=== PATIENT | female | born 1955 | race Caucasian/White ===

== ENCOUNTER 2017-04-27 09:12 | Inpatient (IN) ==
[2017-04-27] MEDS ORDERED: 0.9 % Sodium Chloride 1,000 ML IVC ONE (09:35)
[2017-04-27] MEDS ORDERED: Vancomycin 1,250 MG in D5% in Water 250 ML IVPB STA (09:40)
--- NOTE | 2017-04-27 09:42 | Emergency Department Note ---
Disposition Clinical Impression: Cellulitis Qualifiers: Site of cellulitis: extremity Site of cellulitis of extremity: lower extremity Laterality: left Qualified Code(s): L03.116 - Cellulitis of left lower limb Disposition: Admitted As Inpatient Condition: Fair Time of Disposition: 11:06 Extremity Problem HPI - General Chief complaint: ED Extremity Problem,Nontraumatic Stated complaint: LLE Cellulitis Time Seen by Provider: 04/27/17 09:22 Source: patient Mode of arrival: ambulatory Limitations: no limitations Nursing Notes Reviewed: Yes Vital Signs Reviewed: Yes - History of Present Illness HPI Narrative: Patient is instructed him up once emergency department with left leg pain and cellulitis. Patient states that this is been ongoing for about the past 3 weeks. She says she has been on antibiotics for the past 20 days including clindamycin and for the past 10 days Bactrim. She states that she has had an ultrasound of her leg was negative for DVT. She reports that she was here this past Monday and received treatment but did not want to be admitted because she felt that she needed to work. She states that she does not know if there is any injury to the leg but states that while putting on her compression stockings she felt that she may have scraped her leg. Her leg seems to get worse when she is on it all day and is better while she has elevated during the night. She says that her leg feels like a burning pain and rates as a 7 out of 10. Pain Scale: 7 - Related Data Home Medications Medication Instructions Recorded Confirmed Dapagliflozin Propanediol [Farxiga] 5 mg PO DAILY 04/27/17 04/27/17 Duloxetine HCl [Cymbalta] 60 mg PO DAILY 04/27/17 04/27/17 Furosemide [Lasix] 40 mg PO DAILY 04/27/17 04/27/17 Liraglutide [Victoza 3-Polo] 1.2 mg SQ DAILY 04/27/17 04/27/17 Methocarbamol [Robaxin-750] 750 mg PO Q12H PRN 04/27/17 04/27/17 Multivitamin [Multi-Day Vitamins] 1 tab PO DAILY 04/27/17 04/27/17 Naproxen [Naprosyn] 500 mg PO BID PRN 04/27/17 04/27/17 Olmesartan/Hydrochlorothiazide 1 tab PO DAILY 04/27/17 04/27/17 [Benicar Hct 20-12.5 mg Tablet] Potassium Chloride [Klor-Con 10] 10 meq PO DAILY 04/27/17 04/27/17 Pregabalin [Lyrica] 150 mg PO HS 04/27/17 04/27/17 Rosuvastatin [Crestor] 20 mg PO HS 04/27/17 04/27/17 Allergies Allergy/AdvReac Type Severity Reaction Status Date / Time cephalexin [From Keflex] Allergy Rash Verified 04/25/17 20:36 clopidogrel [From Plavix] Allergy Anaphylaxis Verified 04/25/17 20:36 Penicillins [PCN] Allergy Rash Verified 04/25/17 20:36 All systems ED: reviewed and negative except as stated. ENT ED: Reports: other (Sore throat couple of days ago) Musculoskeletal: Reports: other (Left leg pain) Past Medical History - Past Medical History Attestation: Yes The following information was validated with the patient. Source: patient Medical history: Reports: diabetes, hyperlipidemia, hypertension Psychiatric history: Reports: no psych history DIRECTOR OF CLINICAL TRIALS history: Reports: no DIRECTOR OF CLINICAL TRIALS history - Social History Smoking Status: Never smoker Smokeless Tobacco Status: No Alcohol use: Reports: rarely Drug use: Reports: none Physical Exam - General Limitations: no limitations General appearance: alert, in no apparent distress - Head Head exam: atraumatic, normocephalic - Neck Neck exam: Present: normal inspection, full ROM, trachea midline - Respiratory Respiratory exam: Present: normal lung sounds bilaterally. Absent: respiratory distress, wheezes - Cardiovascular Cardiovascular exam: Present: regular rate, normal rhythm, normal heart sounds, +S1, +S2 - Abdominal Exam Abdominal exam: Present: soft, Non-Tender, normal bowel sounds - Expanded Lower Extremity Exam Lower leg exam: Present: swelling, erythema, other (Petechiae) - Neurological Exam Neurological exam: Present: alert, oriented X3, CN II-XII intact - Psychiatric Psychiatric exam: Present: normal affect, normal mood - Skin Skin exam: Present: warm, dry, intact, erythema - Expanded Skin Exam Distribution: LLE Description: Present: tenderness, erythematous, swelling, petechial Course Vital Signs Temperature 98.2 F 04/27/17 09:19 Pulse Rate 84 04/27/17 09:19 Respiratory Rate 18 04/27/17 09:19 Blood Pressure 123/74 04/27/17 09:19 O2 Sat by Pulse Oximetry 95 04/27/17 09:19 Temperature 98.2 F 04/27/17 09:19 Pulse Rate 83 04/27/17 09:30 Respiratory Rate 20 04/27/17 11:19 Blood Pressure 129/71 04/27/17 11:19 O2 Sat by Pulse Oximetry 96 04/27/17 09:30 Oxygen Delivery Oxygen Delivery Room Air Extremity Problem, Nontraumati - [facility] Narrative Medical decision making narrative: Patient is a 61-year-old female that presents emergency Department with left lower extremity pain and possible cellulitis. She has received outpatient therapy with clindamycin and Bactrim. Since she has failed outpatient therapy 2 we will start her on vancomycin and admitted her to the hospital. We have ordered labs and will contact the hospitalist once we have the results. I spoke with Dr. Mason at 10:45am and he has accepted the patient to his service. - Medical Records Medical records reviewed: Yes I reviewed the patient's medical records. - Lab Data Lab results reviewed: Yes I reviewed the patient's lab results. Result diagrams: 04/27/17 09:46 04/27/17 09:46 Lab Results 04/27/17 04/27/17 Range/Units 09:46 09:46 WBC 6.0 (4.3-11.1) K/mcL RBC 4.20 (3.82-4.97) M/mcL Hgb 11.2 L (11.5-15.4) g/dL Hct 36.2 (35.3-44.9) % MCV 86.2 (83.0-100.0) fL MCH 26.7 L (28.0-33.3) pg MCHC 30.9 L (31.6-35.5) g/dL RDW 15.1 H (11.5-14.5) % Plt Count 281 (140-400) K/mcL MPV 11.2 (9.4-12.4) fL Immature Gran % 0.5 (0-4) % Seg Neutrophils % 73.6 % Lymphocytes % 18.9 % Monocytes % 4.2 % Eosinophils % 2.5 % Basophils % 0.3 % Neutrophils # 4.4 (1.6-8.9) K/mcL Lymphocytes # 1.1 (0.6-4.6) K/mcL Monocytes # 0.3 (0.0-1.3) K/mcL Eosinophils # 0.2 (0.0-0.6) K/mcL Basophils # 0.0 (0.0-0.2) K/mcL Sodium 138 (136-145) mEq/L Potassium 3.9 (3.5-4.5) mEq/L Chloride 103 (98-109) mEq/L Carbon Dioxide 26 (19-29) mEq/L BUN 18 (7-20) mg/dL Creatinine 1.17 H (0.57-1.11) mg/dL Est GFR ( Amer) 57 L (> 60) Est GFR (Non-Af Amer) 47 L (> 60) BUN/Creatinine Ratio 15 (6-26) Glucose 251 H (70-99) mg/dL Calculated Osmolality 296 (280-300) Calcium 10.5 (8.6-10.8) mg/dL Attestation Statement - Attestation Attestation: I examined this patient and my medical decision-making was reviewed with the Resident Physician. I agree with the documented findings, disposition and treatment plan as described except to the extent set forth below. 61-year-old female presents ED because of painful swelling of her left leg. She has had redness and swelling of her left partially for the past few weeks. Uncertain if there was any trauma. She was treated with a ten-day course of clindamycin without improvement. She is now been on almost 10 days of Bactrim without improvement. No long-distance travel or periods of prolonged immobilization. She was seen in the ED 2 days ago and underwent venous duplex study which was negative for DVT. She returns today because symptoms are worsening and the erythema has progressed to the posterior aspect of the leg. Denies fevers, chills or rigors. Well-appearing female in no apparent distress. Left lower extremity with moderate erythema is nearly circumferential around the lower leg. Dorsal pedal pulses are brisk. Capillary refill is brisk. Compartment is soft. Moderate tenderness and now with some ecchymosis over the anterior rossi. No palpable fluctuance. Labs unremarkable but slight increase in her creatinine. Bedside ultrasound of the region shows some mild cobblestoning of the soft tissue but no focal fluid acute lesion. She will be started on IV vancomycin and admitted for further treatment
[2017-04-27 10:08] LABS: Basophils % 0.3 %; Eosinophils # 0.2 K/mcL (0.0-0.6); Eosinophils % 2.5 %; Hematocrit 36.2 % (35.3-44.9); Hemoglobin 11.2 g/dL (11.5-15.4); Immature Granulocytes % 0.5 % (0-4); Lymphocytes # 1.1 K/mcL (0.6-4.6); Lymphocytes % 18.9 %; Mean Corpuscular HGB Conc 30.9 g/dL (31.6-35.5); Mean Corpuscular Hemoglobin 26.7 pg (28.0-33.3); Mean Corpuscular Volume 86.2 fL (83.0-100.0); Mean Platelet Volume 11.2 fL (9.4-12.4); Monocytes # 0.3 K/mcL (0.0-1.3); Monocytes % 4.2 %; Neutrophils # 4.4 K/mcL (1.6-8.9); Platelet Count 281 K/mcL (140-400); Red Cell Distribution Width 15.1 % (11.5-14.5); Segmented Neutrophils % 73.6 %
[2017-04-27 10:19] LABS: Calcium 10.5 mg/dL (8.6-10.8); Potassium 3.9 mEq/L (3.5-4.5)
[2017-04-27] MEDS ORDERED: Naloxone 0.4 MG/ML INJ IVP PRN (11:18)
[2017-04-27] MEDS ORDERED: Methocarbamol 750 MG TABLET PO PRN (11:23)
[2017-04-27] MEDS ORDERED: Dextrose Gel 15 GM PO PRN ×2 (11:26)
[2017-04-27] MEDS ORDERED: D5% in Water 1,000 ML IVC PRN (11:26)
[2017-04-27] MEDS ORDERED: *HR* Dextrose 50 % in Water (Syg) 50 ML SYRINGE IVP PRN (11:26)
--- NOTE | 2017-04-27 11:34 | Internal Med History&Physical ---
Date of Encounter: 04/27/17 Time of Encounter: 11:00 Assessment and Plan (1) Diabetes Current visit: Yes Status: Acute Will cover patient with sliding scale insulin Qualifiers: Diabetes mellitus type: type 2 Diabetes mellitus complication status: without complication Diabetes mellitus intermediate accountant insulin use: without intermediate accountant use Qualified Code(s): E11.9 - Type 2 diabetes mellitus without complications (2) Hypertension Current visit: Yes Status: Acute Continue home medications. Follow-up blood pressure Qualifiers: Hypertension type: essential hypertension Qualified Code(s): I10 - Essential (primary) hypertension (3) DVT prophylaxis Current visit: Yes Status: Acute Heparin subcutaneously. (4) Cellulitis Current visit: No Status: Acute Patient has failed outpatient treatment. We will start vancomycin IV, dosing by pharmacy. First dose has been given by emergency room. - Elevate left leg Patient is at high risk because she is on vancomycin, need close monitoring. Qualifiers: Site of cellulitis: extremity Site of cellulitis of extremity: lower extremity Laterality: left Qualified Code(s): L03.116 - Cellulitis of left lower limb (5) Elevated serum creatinine Current visit: Yes Status: Acute Borderline high creatinine. No previous result to compare. Avoid nephrotoxic medications. Follow-up renal function. Internal Medicine - H&P: HPI Chief complaint: Left leg pain and swelling Admitted From: Home Plans for Post Hospital Care: Home History of present illness: Ms. De Leon is a 61 year old female present to ER for left leg pain, swelling, skin redness and warmth for 20 days. Patient was treated as cellulitis as outpatient with clindamycin by mouth for 10 days and Bactrim by mouth for 10 days. Symptoms does not improve after outpatient treatment. The redness and swelling is getting worse. Patient also complaining burning and sharp pain. Denies fever, nausea. Denies skin rupture or discharge. Patient had leg venous ultrasound on 04/25, which shows negative for DVT. Patient was admitted because of failed outpatient treatment of cellulitis. Patient complaint sore throat and the right neck lymph node enlargement since yesterday. Past Med Surg Social Fam HX - Past Medical History Medical history: diabetes, hyperlipidemia, hypertension Psychiatric history: no psych history - Social History Smoking Status: Never smoker Smokeless Tobacco Status: No Alcohol use: rarely Drug use: none Internal Medicine - H&P: Meds Dapagliflozin Propanediol [Farxiga] 5 mg PO DAILY 04/27/17 [History] Duloxetine HCl [Cymbalta] 60 mg PO DAILY 04/27/17 [History] Furosemide [Lasix] 40 mg PO DAILY 04/27/17 [History] Liraglutide [Victoza 3-Polo] 1.2 mg SQ DAILY 04/27/17 [History] Methocarbamol [Robaxin-750] 750 mg PO Q12H PRN 04/27/17 [History] Multivitamin [Multi-Day Vitamins] 1 tab PO DAILY 04/27/17 [History] Naproxen [Naprosyn] 500 mg PO BID PRN 04/27/17 [History] Olmesartan/Hydrochlorothiazide [Benicar Hct 20-12.5 mg Tablet] 1 tab PO DAILY [History] Potassium Chloride [Klor-Con 10] 10 meq PO DAILY 04/27/17 [History] Pregabalin [Lyrica] 150 mg PO HS 04/27/17 [History] Rosuvastatin [Crestor] 20 mg PO HS 04/27/17 [History] Allergies cephalexin [From Keflex] Allergy (Verified 04/25/17 20:36) Rash clopidogrel [From Plavix] Allergy (Verified 04/25/17 20:36) Anaphylaxis Penicillins [PCN] Allergy (Verified 04/25/17 20:36) Rash All Systems PM: A 10-system review of systems was performed and is negative for pertinent findings except as documented above in the HPI. - Constitutional Vitals: Temp Pulse Resp BP Pulse Ox 98.2 F 83 20 129/71 96 04/27/17 09:19 04/27/17 09:30 04/27/17 11:19 04/27/17 11:19 04/27/17 09:30 - Head Head exam: Present: atraumatic, normocephalic - Eye Eye exam: Present: PERRL, conjuntiva pink, sclera anicteric Pupils: Present: PERRL - Neck Neck exam general surgery: Present: supple, trachea midline. Absent: lymphadenopathy - Respiratory Respiratory exam: Present: CTAB. Absent: accessory muscle use, rales, rhonchi, wheezes - Cardiovascular Cardiovascular exam: Present: RRR, +S1, +S2. Absent: diastolic murmur, gallop, rubs, systolic murmur - GI/Abdominal GI/Abdominal exam: Present: normal bowel sounds, soft, no peritoneal signs. Absent: distended, tenderness - Extremities Exam Extremities exam: Present: warm, radial pulses palpable and symetrical. Absent : calf tenderness, cyanotic, pedal edema Additional comments: Left lower leg shows swelling, skin redness/warmth/tenderness - Neurological Exam Neurological exam: Present: CN II-XII intact, oriented X3, no focal deficits. Absent: pronater drift, facial droop, speech deficit - Skin Skin exam: Present: dry, intact Internal Med - H&P Results - Labs CBC & Chem 7: 04/27/17 09:46 04/27/17 09:46
[2017-04-27] MEDS ORDERED: Vancomycin 1,250 MG in D5% in Water 250 ML IVPB SCH (12:00)
[2017-04-27] MEDS: Insulin LISPRO 300 UNITS/3 ML VIAL SQ SCH ×4 (12:52→20:38)
[2017-04-27] MEDS: *HR* HYDROcodone/Acet 5/325 mg TABLET PO PRN ×2 (13:21→19:54)
[2017-04-27] MEDS: Acetaminophen 325 MG TABLET PO PRN (15:45)
[2017-04-27] MEDS: *HR* Heparin 5,000 UNIT/ML VIAL SQ SCH (17:55)
[2017-04-27] MEDS: Pregabalin 75 MG CAPSULE PO SCH (21:00)
[2017-04-27] MEDS: Lactobacillus 1 EACH CAP.SPRINK PO SCH (21:00)
[2017-04-28] MEDS: *HR* HYDROcodone/Acet 5/325 mg TABLET PO PRN ×2 (03:52→14:45)
[2017-04-28] MEDS: *HR* Heparin 5,000 UNIT/ML VIAL SQ SCH ×2 (05:55→16:51)
[2017-04-28 06:14] LABS: Basophils % 0.4 %; Eosinophils # 0.2 K/mcL (0.0-0.6); Eosinophils % 3.4 %; Hematocrit 33.3 % (35.3-44.9); Hemoglobin 10.3 g/dL (11.5-15.4); Immature Granulocytes % 0.5 % (0-4); Lymphocytes # 1.4 K/mcL (0.6-4.6); Lymphocytes % 25.7 %; Mean Corpuscular HGB Conc 30.9 g/dL (31.6-35.5); Mean Corpuscular Hemoglobin 26.8 pg (28.0-33.3); Mean Corpuscular Volume 86.5 fL (83.0-100.0); Mean Platelet Volume 11.6 fL (9.4-12.4); Monocytes # 0.3 K/mcL (0.0-1.3); Monocytes % 6.1 %; Neutrophils # 3.6 K/mcL (1.6-8.9); Platelet Count 257 K/mcL (140-400); Red Blood Count 3.85 M/mcL (3.82-4.97); Segmented Neutrophils % 63.9 %
[2017-04-28 06:16] LABS: BUN/Creatinine Ratio 16 (6-26); Blood Urea Nitrogen 17 mg/dL (7-20); Calcium 10.1 mg/dL (8.6-10.8); Carbon Dioxide 27 mEq/L (19-29); Chloride 104 mEq/L (98-109); Glucose 122 mg/dL (70-99); Osmolality,Calculated 289 (280-300); Sodium 138 mEq/L (136-145); eGFR For African Americans > 60 (> 60); eGFR For Non-African Americans 53 (> 60)
[2017-04-28] MEDS: Insulin LISPRO 300 UNITS/3 ML VIAL SQ SCH ×4 (08:13→20:33)
[2017-04-28] MEDS ORDERED: Valsartan 160 MG TABLET PO SCH (09:00)
[2017-04-28] MEDS: Lactobacillus 1 EACH CAP.SPRINK PO SCH ×2 (09:15→20:33)
[2017-04-28] MEDS: Furosemide 40 MG TABLET PO SCH (09:16)
[2017-04-28] MEDS: Multivit/Ca/Min/Fe/FA 1 TAB TABLET PO SCH (09:16)
[2017-04-28] MEDS: hydroCHLOROthiazide 25 MG TABLET PO SCH (09:16)
[2017-04-28] MEDS: Valsartan 160 MG TABLET PO SCH (09:30)
[2017-04-28] MEDS: Acetaminophen 325 MG TABLET PO PRN ×2 (10:48→20:32)
[2017-04-28] MEDS: Vancomycin 1,250 MG in D5% in Water 250 ML IVPB SCH (10:48)
--- NOTE | 2017-04-28 14:32 | Internal Med Progress Note ---
Date of Encounter: 04/28/17 Time of Encounter: 08:20 - Assessment and plan (1) Cellulitis Current Visit: Yes Status: Acute Assessment and plan: Cellulitis of the left lower extremity that has failed treatment with outpatient antibiotics. Improving now. Continue IV vancomycin. If symptoms continue to improve, patient may be discharged tomorrow on oral doxycycline as she has completed treatment course with clindamycin and Bactrim as outpatient. She needs to keep her left lower extremity elevated as much as possible to allow for resolution of cellulitis. Moderate risk for complications for worsening cellulitis and sepsis. Qualifiers: Site of cellulitis: extremity Site of cellulitis of extremity: lower extremity Laterality: left Qualified Code(s): L03.116 - Cellulitis of left lower limb (2) Diabetes Current Visit: Yes Status: Chronic Assessment and plan: improved control. Continue to monitor blood sugars and adjust insulin accordingly. Qualifiers: Diabetes mellitus type: type 2 Diabetes mellitus complication status: without complication Diabetes mellitus predatory animal exterminator insulin use: without [facility] use Qualified Code(s): E11.9 - Type 2 diabetes mellitus without complications (3) Elevated serum creatinine Current Visit: Yes Status: Chronic Assessment and plan: Patient may have underlying chronic kidney disease stage II. Creatinine today is better. We will avoid nephrotoxic agents and dose antibiotics renally. (4) Hypertension Current Visit: Yes Status: Chronic Assessment and plan: Blood pressure is well controlled Qualifiers: Hypertension type: essential hypertension Qualified Code(s): I10 - Essential (primary) hypertension - Subjective Interval history: Patient is awake and alert. Feels better today. Redness and swelling in left lower extremity is improving. She does have pain when she her left rossi but otherwise no significant pain. No discharge from left lower extremity. No fever chills or night sweats. - Constitutional Vitals: Temp Pulse Resp BP Pulse Ox 98.7 F 72 18 117/61 94 04/28/17 11:15 04/28/17 11:15 04/28/17 11:15 04/28/17 11:15 04/28/17 11:15 General appearance: Present: cooperative, A&O X 3, answers questions appropriately - Respiratory Respiratory exam: Present: CTAB. Absent: accessory muscle use, rales, rhonchi, wheezes - Cardiovascular Cardiovascular exam: Present: RRR, +S1, +S2. Absent: diastolic murmur, gallop, rubs, systolic murmur - GI/Abdominal GI/Abdominal exam: Present: normal bowel sounds, soft, no peritoneal signs. Absent: distended, tenderness - Extremities Exam Extremities exam: Present: warm, radial pulses palpable and symetrical. Absent : calf tenderness, cyanotic, pedal edema Additional comments: Erythema and swelling in the left lower extremity is improving. - Neurological Exam Neurological exam: Present: CN II-XII intact, oriented X3, no focal deficits. Absent: facial droop, speech deficit - Skin Skin exam: Present: dry, intact Internal Medicine: Result - Labs CBC & Chem 7: 04/28/17 04:34 04/28/17 04:34 Labs: Short CBC 04/28/17 Range/Units 04:34 WBC 5.6 (4.3-11.1) K/mcL Hgb 10.3 L (11.5-15.4) g/dL Hct 33.3 L (35.3-44.9) % Plt Count 257 (140-400) K/mcL Neutrophils # 3.6 (1.6-8.9) K/mcL BMP 04/28/17 04:34 Sodium 138 Potassium 4.0 Chloride 104 Carbon Dioxide 27 BUN 17 Creatinine 1.05 Glucose 122 H Calcium 10.1 Consult Discharge Plan - Plan Referrals: Jamey Kelly CNP [Primary Care Provider] -
[2017-04-28] MEDS: Pregabalin 75 MG CAPSULE PO SCH (20:32)
[2017-04-29] MEDS: Acetaminophen 325 MG TABLET PO PRN (03:52)
[2017-04-29] MEDS: *HR* Heparin 5,000 UNIT/ML VIAL SQ SCH (06:08)
[2017-04-29 06:41] LABS: Basophils % 0.3 %; Eosinophils # 0.2 K/mcL (0.0-0.6); Eosinophils % 2.8 %; Hematocrit 34.7 % (35.3-44.9); Hemoglobin 10.6 g/dL (11.5-15.4); Immature Granulocytes % 0.5 % (0-4); Lymphocytes # 1.4 K/mcL (0.6-4.6); Mean Corpuscular HGB Conc 30.5 g/dL (31.6-35.5); Mean Corpuscular Volume 85.3 fL (83.0-100.0); Mean Platelet Volume 11.3 fL (9.4-12.4); Monocytes # 0.4 K/mcL (0.0-1.3); Neutrophils # 4.1 K/mcL (1.6-8.9); Platelet Count 261 K/mcL (140-400); Red Blood Count 4.07 M/mcL (3.82-4.97); Red Cell Distribution Width 14.8 % (11.5-14.5); Segmented Neutrophils % 66.4 %
[2017-04-29 06:50] LABS: BUN/Creatinine Ratio 20 (6-26); Blood Urea Nitrogen 18 mg/dL (7-20); Carbon Dioxide 30 mEq/L (19-29); Chloride 104 mEq/L (98-109); Glucose 147 mg/dL (70-99); Potassium 3.9 mEq/L (3.5-4.5); Sodium 139 mEq/L (136-145); eGFR For African Americans > 60 (> 60); eGFR For Non-African Americans > 60 (> 60)
[2017-04-29 06:51] LABS: Calcium 10.5 mg/dL (8.6-10.8); Osmolality,Calculated 293 (280-300)
[2017-04-29] MEDS: Multivit/Ca/Min/Fe/FA 1 TAB TABLET PO SCH (08:07)
[2017-04-29] MEDS: hydroCHLOROthiazide 25 MG TABLET PO SCH (08:07)
[2017-04-29] MEDS: Valsartan 160 MG TABLET PO SCH (08:07)
[2017-04-29] MEDS: Lactobacillus 1 EACH CAP.SPRINK PO SCH (08:07)
[2017-04-29] MEDS: Furosemide 40 MG TABLET PO SCH (08:07)
[2017-04-29] MEDS: Insulin LISPRO 300 UNITS/3 ML VIAL SQ SCH ×2 (08:10→11:45)
[2017-04-29] MEDS: *HR* HYDROcodone/Acet 5/325 mg TABLET PO PRN (10:36)
[2017-04-29] MEDS: Vancomycin 1,250 MG in D5% in Water 250 ML IVPB SCH (10:37)
[2017-04-29 12:07] VITALS: BP 126/71
--- NOTE | 2017-04-29 14:13 | Discharge Summary ---
Date of Encounter: 04/29/17 Time of Encounter: 14:05 - Discharge Diagnosis (1) Cellulitis Priority: Primary Status: Acute Qualifiers: Site of cellulitis: extremity Site of cellulitis of extremity: lower extremity Laterality: left Qualified Code(s): L03.116 - Cellulitis of left lower limb (2) Diabetes Priority: Secondary Status: Chronic Qualifiers: Diabetes mellitus type: type 2 Diabetes mellitus complication status: without complication Diabetes mellitus fci insulin use: without roasterman use Qualified Code(s): E11.9 - Type 2 diabetes mellitus without complications (3) Hypertension Priority: Secondary Status: Chronic Qualifiers: Hypertension type: essential hypertension Qualified Code(s): I10 - Essential (primary) hypertension - Discharge Medications Prescriptions: Ciprofloxacin [Cipro] 500 mg PO BID #22 tablet Doxycycline Hyclate 100 mg PO BID #22 capsule Valsartan [Diovan] 160 mg PO DAILY #30 tab Home Medications: Dapagliflozin Propanediol [Farxiga] 5 mg PO DAILY 04/27/17 [History] Duloxetine HCl [Cymbalta] 60 mg PO DAILY 04/27/17 [History] Furosemide [Lasix] 40 mg PO DAILY 04/27/17 [History] Liraglutide [Victoza 3-Polo] 1.2 mg SQ DAILY 04/27/17 [History] Multivitamin [Multi-Day Vitamins] 1 tab PO DAILY 04/27/17 [History] Naproxen [Naprosyn] 500 mg PO BID PRN 04/27/17 [History] Olmesartan/Hydrochlorothiazide [Benicar Hct 20-12.5 mg Tablet] 1 tab PO DAILY [History] Potassium Chloride [Klor-Con 10] 10 meq PO DAILY 04/27/17 [History] Pregabalin [Lyrica] 150 mg PO HS 04/27/17 [History] Rosuvastatin [Crestor] 20 mg PO HS 04/27/17 [History] Acetaminophen [Tylenol] 650 mg PO Q6HR PRN tab 04/29/17 [Rx] Ciprofloxacin [Cipro] 500 mg PO BID #22 tablet 04/29/17 [Rx] Doxycycline Hyclate 100 mg PO BID #22 capsule 04/29/17 [Rx] Valsartan [Diovan] 160 mg PO DAILY #30 tab 04/29/17 [Rx] Allergies/Adverse Reactions: Allergies cephalexin [From Keflex] Allergy (Verified 04/25/17 20:36) Rash clopidogrel [From Plavix] Allergy (Verified 04/25/17 20:36) Anaphylaxis Penicillins [PCN] Allergy (Verified 04/25/17 20:36) Rash Date of admission: 04/27/17 12:31 Primary care physician: Dayan Castillo Anticipated date of discharge: 04/29/17 - Patient Status Disposition: Home, Self-Care Condition: Fair - Discharge Instructions Follow Up With: Jamey Kelly CNP [Primary Care Provider] - - Diet and Activity Activity: increase activity as tolerated Diet: advance to your usual diet Hospital course: Ms. De Leon is a 61 year old female admitted for lower extremity cellulitis which failed outpatient treatment. She was started on IV Cipro and thinks that her and cellulitis has improved. She will be discharged home on doxycycline and Cipro. Her cultures were negative. She has been explained possible reasons and choices. She will return to ER if symptoms develop or worsen. - Time Spent with Patient Total time spent providing and/or coordinating discharge services: Greater than 30 minutes - Constitutional Vitals: Temp Pulse Resp BP Pulse Ox 97.9 F 82 16 126/71 97 04/29/17 10:45 04/29/17 10:45 04/29/17 10:45 04/29/17 10:45 04/29/17 10:45 General appearance: Present: cooperative, A&O X 3, answers questions appropriately - Head Head exam: Present: atraumatic, normocephalic - Eye Eye exam: Present: PERRL, conjuntiva pink, sclera anicteric Pupils: Present: PERRL - Neck Neck exam general surgery: Present: supple, trachea midline. Absent: lymphadenopathy - Respiratory Respiratory exam: Present: CTAB. Absent: accessory muscle use, rales, rhonchi, wheezes - Cardiovascular Cardiovascular exam: Present: RRR, +S1, +S2. Absent: diastolic murmur, gallop, rubs, systolic murmur - GI/Abdominal GI/Abdominal exam: Present: normal bowel sounds, soft, no peritoneal signs. Absent: distended, tenderness - Extremities Exam Extremities exam: Present: warm, radial pulses palpable and symetrical. Absent : calf tenderness, cyanotic, pedal edema Additional comments: Patient lower extremity examined. Rash has receded. Some tenderness at calf muscle but otherwise Homans sign is negative and according to patient she did have an ultrasound of her leg in the ER to rule out blood clot which was negative. Patient feels her cellulitis has improved she can bear weight and ambulate without any difficulty. - Neurological Exam Neurological exam: Present: CN II-XII intact, oriented X3, no focal deficits. Absent: pronater drift, facial droop, speech deficit - Skin Skin exam: Present: dry, intact
[2017-04-29] MEDS ORDERED: Doxycycline 100 MG CAPSULE PO ONE (14:37)
[2017-04-29] MEDS ORDERED: Aminoglycoside Consult 1 EACH MC ONE (15:09)
== END 2017-04-29 15:10 | disposition home or self-care (01) | DRG 603 ==
LOC: 3ANU 09:12 → EMEROO 09:12 → 3ANU 11:32
PROVIDERS: ADMIT Internal Medicine; ATTEND Internal Medicine

== ENCOUNTER 2017-05-04 20:53 | Observation (INO) ==
[2017-05-04] MEDS ORDERED: *HR* HYDROmorphone (PF) 1 MG/ML SYRINGE IVP ONE (21:54)
[2017-05-04] MEDS ORDERED: Vancomycin 1,500 MG in D5% in Water 250 ML IVPB ONE (22:00)
[2017-05-04 22:15] LABS: Basophils # 0.1 K/mcL (0.0-0.2); Basophils % 0.5 %; Eosinophils # 0.2 K/mcL (0.0-0.6); Eosinophils % 2.5 %; Hematocrit 36.7 % (35.3-44.9); Hemoglobin 11.4 g/dL (11.5-15.4); Immature Platelets 6.2 % (1.1-6.1); Lymphocytes # 2.2 K/mcL (0.6-4.6); Lymphocytes % 23.3 %; Mean Corpuscular HGB Conc 31.1 g/dL (31.6-35.5); Mean Corpuscular Hemoglobin 26.1 pg (28.0-33.3); Mean Corpuscular Volume 84.2 fL (83.0-100.0); Mean Platelet Volume 10.6 fL (9.4-12.4); Monocytes # 0.7 K/mcL (0.0-1.3); Monocytes % 7.3 %; Neutrophils # 6.1 K/mcL (1.6-8.9); Platelet Count 395 K/mcL (140-400); Red Blood Count 4.36 M/mcL (3.82-4.97); Red Cell Distribution Width 15.4 % (11.5-14.5); Segmented Neutrophils % 65.4 %
[2017-05-04 22:30] LABS: Albumin 3.4 g/dL (3.5-5.0); Albumin/Globulin Ratio 0.8 (1.1-2.2); Bilirubin,Total 0.3 mg/dL (0.2-1.2); Calcium 11.6 mg/dL (8.6-10.8); Globulin 4.5 g/dL (2.4-3.5); Potassium 3.6 mEq/L (3.5-4.5); Total Protein 7.9 g/dL (6.0-8.3)
--- NOTE | 2017-05-05 00:09 | Emergency Department Note ---
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 She has no fever. She has pain out of proportion to examination with soft compartments on arrival. She admits to worsening pain despite previous outpatient antibiotic therapy. In fact she actually admits to being inpatient and having some response to vancomycin treatment. The pain however has got worse and her swelling and redness has increased. Today she had trouble with walking. Pain Scale: 10 - Related Data Home Medications Medication Instructions Recorded Confirmed Dapagliflozin Propanediol [Farxiga] 5 mg PO DAILY 04/27/17 04/27/17 Duloxetine HCl [Cymbalta] 60 mg PO DAILY 04/27/17 04/27/17 Furosemide [Lasix] 40 mg PO DAILY 04/27/17 04/27/17 Liraglutide [Victoza 3-Polo] 1.2 mg SQ DAILY 04/27/17 04/27/17 Multivitamin [Multi-Day Vitamins] 1 tab PO DAILY 04/27/17 04/27/17 Naproxen [Naprosyn] 500 mg PO BID PRN 04/27/17 04/27/17 Olmesartan/Hydrochlorothiazide 1 tab PO DAILY 04/27/17 04/27/17 [Benicar Hct 20-12.5 mg Tablet] Potassium Chloride [Klor-Con 10] 10 meq PO DAILY 04/27/17 04/27/17 Pregabalin [Lyrica] 150 mg PO HS 04/27/17 04/27/17 Rosuvastatin [Crestor] 20 mg PO HS 04/27/17 04/27/17 Previous Rx's Medication Instructions Recorded Acetaminophen [Tylenol] 650 mg PO Q6HR PRN tab 04/29/17 Ciprofloxacin [Cipro] 500 mg PO BID #22 tablet 04/29/17 Doxycycline Hyclate 100 mg PO BID #22 capsule 04/29/17 Valsartan [Diovan] 160 mg PO DAILY #30 tab 04/29/17 Allergies Allergy/AdvReac Type Severity Reaction Status Date / Time cephalexin [From Keflex] Allergy Rash Verified 05/04/17 21:37 clopidogrel [From Plavix] Allergy Anaphylaxis Verified 05/04/17 21:37 Penicillins [PCN] Allergy Rash Verified 05/04/17 21:37 All systems ED: reviewed and negative except as stated. Past Medical History - Past Medical History Medical history: Reports: diabetes, hyperlipidemia, hypertension Surgical history: Reports: hip replacement, hysterectomy Psychiatric history: Reports: no psych history EPIC AMBULATORY ANALYST history: Reports: no EPIC AMBULATORY ANALYST history - Social History Smoking Status: Former smoker Smokeless Tobacco Status: No Alcohol use: Reports: none Drug use: Reports: none Physical Exam There is redness and swelling over the left lower extremity in the tib-fib region with good pulses over the dorsalis pedis and posterior tibial region.. - General Limitations: no limitations General appearance: alert - Head Head exam: atraumatic - Eye Eye exam: Present: normal appearance - ENT ENT exam: normal exam - Neck Neck exam: Present: normal inspection - Chest Chest inspection: Present: normal inspection - Respiratory Respiratory exam: Present: normal lung sounds bilaterally - Cardiovascular Cardiovascular exam: Present: regular rate, normal rhythm - Abdominal Exam Abdominal exam: Present: soft, Non-Tender - Extremities Exam Extremities exam: Present: normal inspection, full ROM - Expanded Lower Extremity Exam Hip/Pelvis exam: Present: normal inspection, full ROM Course Vital Signs Temperature 97.6 F 05/04/17 21:33 Pulse Rate 86 05/04/17 21:33 Respiratory Rate 16 05/04/17 21:33 Blood Pressure 148/81 05/04/17 21:33 O2 Sat by Pulse Oximetry 98 05/04/17 21:33 Temperature 97.6 F 05/04/17 21:33 Pulse Rate 86 05/04/17 21:33 Respiratory Rate 16 05/04/17 21:33 Blood Pressure 148/81 05/04/17 21:33 O2 Sat by Pulse Oximetry 98 05/04/17 21:33 Oxygen Delivery Oxygen Delivery Room Air Medical Decision Making - MDM Narrative Medical decision making narrative: This is possible cellulitis versus vasculitis. I am concerned about cellulitis and as such vancomycin was initiated. She does have evidence of elevated sedimentation rate and CRP with normal white blood cell count. Her compartments are soft and compressible. She has no evidence of compartment syndrome. I did get an x-ray to rule out osteo-and this is negative. Normal saline was initiated for acute kidney injury. I did discuss with her about hypercalcemia and that this would need to be rechecked after hydration. Additionally she was given pain control. She will be admitted for further evaluation and possible dermatology evaluation or monitored response to antibiotic therapy. - Lab Data Result diagrams: 05/04/17 22:02 05/04/17 22:02 Lab Results 05/04/17 05/04/17 05/04/17 Range/Units 22:02 22:02 22:02 WBC 9.3 D (4.3-11.1) K/mcL RBC 4.36 (3.82-4.97) M/mcL Hgb 11.4 L (11.5-15.4) g/dL Hct 36.7 (35.3-44.9) % MCV 84.2 (83.0-100.0) fL MCH 26.1 L (28.0-33.3) pg MCHC 31.1 L (31.6-35.5) g/dL RDW 15.4 H (11.5-14.5) % Plt Count 395 D (140-400) K/mcL MPV 10.6 (9.4-12.4) fL Immature Gran % 1.0 (0-4) % Seg Neutrophils % 65.4 % Lymphocytes % 23.3 % Monocytes % 7.3 % Eosinophils % 2.5 % Basophils % 0.5 % Neutrophils # 6.1 (1.6-8.9) K/mcL Lymphocytes # 2.2 (0.6-4.6) K/mcL Monocytes # 0.7 (0.0-1.3) K/mcL Eosinophils # 0.2 (0.0-0.6) K/mcL Basophils # 0.1 (0.0-0.2) K/mcL Immature Plt Fraction 6.2 H (1.1-6.1) % ESR 68 H (0-15) mm/hr Sodium 138 (136-145) mEq/L Potassium 3.6 (3.5-4.5) mEq/L Chloride 100 (98-109) mEq/L Carbon Dioxide 27 (19-29) mEq/L BUN 27 H (7-20) mg/dL Creatinine 1.19 H (0.57-1.11) mg/dL Est GFR ( Amer) 56 L (> 60) Est GFR (Non-Af Amer) 46 L (> 60) BUN/Creatinine Ratio 23 (6-26) Glucose 160 H (70-99) mg/dL Calculated Osmolality 295 (280-300) Lactic Acid (0.5-2.2) mmol/L Calcium 11.6 H (8.6-10.8) mg/dL Total Bilirubin 0.3 (0.2-1.2) mg/dL AST 18 (5-34) Units/L ALT 25 (0-55) Units/L Alkaline Phosphatase 120 (38-126) Units/L C-Reactive Protein 60 H (Less than 5) mg/L Serum Total Protein 7.9 (6.0-8.3) g/dL Albumin 3.4 L (3.5-5.0) g/dL Globulin 4.5 H (2.4-3.5) g/dL Albumin/Globulin Ratio 0.8 L (1.1-2.2) 05/04/17 Range/Units 22:02 WBC (4.3-11.1) K/mcL RBC (3.82-4.97) M/mcL Hgb (11.5-15.4) g/dL Hct (35.3-44.9) % MCV (83.0-100.0) fL MCH (28.0-33.3) pg MCHC (31.6-35.5) g/dL RDW (11.5-14.5) % Plt Count (140-400) K/mcL MPV (9.4-12.4) fL Immature Gran % (0-4) % Seg Neutrophils % % Lymphocytes % % Monocytes % % Eosinophils % % Basophils % % Neutrophils # (1.6-8.9) K/mcL Lymphocytes # (0.6-4.6) K/mcL Monocytes # (0.0-1.3) K/mcL Eosinophils # (0.0-0.6) K/mcL Basophils # (0.0-0.2) K/mcL Immature Plt Fraction (1.1-6.1) % ESR (0-15) mm/hr Sodium (136-145) mEq/L Potassium (3.5-4.5) mEq/L Chloride (98-109) mEq/L Carbon Dioxide (19-29) mEq/L BUN (7-20) mg/dL Creatinine (0.57-1.11) mg/dL Est GFR ( Amer) (> 60) Est GFR (Non-Af Amer) (> 60) BUN/Creatinine Ratio (6-26) Glucose (70-99) mg/dL Calculated Osmolality (280-300) Lactic Acid 1.6 (0.5-2.2) mmol/L Calcium (8.6-10.8) mg/dL Total Bilirubin (0.2-1.2) mg/dL AST (5-34) Units/L ALT (0-55) Units/L Alkaline Phosphatase (38-126) Units/L C-Reactive Protein (Less than 5) mg/L Serum Total Protein (6.0-8.3) g/dL Albumin (3.5-5.0) g/dL Globulin (2.4-3.5) g/dL Albumin/Globulin Ratio (1.1-2.2)
[2017-05-05] MEDS ORDERED: 0.9 % Sodium Chloride 1,000 ML IVC SCH (00:15)
[2017-05-05] MEDS ORDERED: *HR* HYDROmorphone (PF) 1 MG/ML SYRINGE IVP ONE (00:25)
--- NOTE | 2017-05-05 00:59 | Internal Med History&Physical ---
<MarlonDilip - Last Filed: 05/05/17 01:52> Date of Encounter: 05/05/17 Time of Encounter: 00:55 Assessment and Plan (1) Leg pain Current visit: Yes Status: Acute Unclear etiology at this point; she has been treated extensively for cellulitis and only had improvement of symptoms with Vancomycin, which we will start now Vasculitis is certainly in the differential given pain out of proportion to exam , with worsening erythema, swelling in setting of elevated inflammatory markers Obtain PATRICA, ANCA for further workup X-ray of leg was negative for osteo and dopplers preliminarily negative for DVT Support with oral and IV analgesics as needed Blood cultures were collected, results pending Will consult dermatology, appreciate recommendations Qualifiers: Laterality: left Qualified Code(s): M79.605 - Pain in left leg (2) Elevated serum creatinine Current visit: No Status: Acute Mild elevation in Cr not in range of ALTHEA Possibly pre-renal due to dehydration given elevation of calcium as well Will hydrate gently and closely monitor Cr and electrolytes Patient did admit to recent NSAID use for her leg/shoulder pain (3) Hypercalcemia Current visit: Yes Status: Acute Unclear etiology, but patient may be mildly dehydrated give mild elevation in Cr Support with fluid hydration and recheck electrolytes in AM (4) Hypertension Current visit: No Status: Chronic Blood pressures stable since admission Will continue home Valsartan but hold HCTZ in setting of hypercalcemia Qualifiers: Hypertension type: essential hypertension Qualified Code(s): I10 - Essential (primary) hypertension (5) Non-insulin dependent type 2 diabetes mellitus Current visit: Yes Status: Chronic Will start on low dose SSI ACHS accuchecks Obtain A1c in AM (6) DVT prophylaxis Current visit: No Status: Acute Heparin 5000 units BID Internal Medicine - H&P: HPI Chief complaint: leg pain Admitted From: Home Plans for Post Hospital Care: Home History of present illness: Ms. De Leon is a 61 year old female who presents to the ED with worsening left leg pain, swelling, and erythema. 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 She denied any trauma that time, and only noted that she started using compression stockings right before began. She was treated for cellulitis as an outpatient with clindamycin and Bactrim but it did not help. She was admitted here last week and was started on IV vancomycin which did help the swelling somewhat. She was discharged with doxycycline and ciprofloxacin but states the pain and swelling became worse today. Patient also complains of right shoulder pain and bilateral wrist pain that started about 2 weeks ago. At this time, patient is concern for vasculitis as her pain is out of proportion making it difficult for her to walk, and her cellulitis has not improved despite multiple antibiotics. She denies any fevers, chest pain, shortness of breath, nausea, vomiting, diarrhea. She denies any personal history of rheumatologic disorders, cancers, blood clots. Past Med Surg Social Fam HX - Past Medical History Medical history: diabetes, hyperlipidemia, hypertension Psychiatric history: no psych history - Past Surgical History Surgical History: hip replacement, hysterectomy - Social History Smoking Status: Former smoker Smokeless Tobacco Status: No Alcohol use: none Drug use: none - Family History Father Adopted: No Family Member Ethnicity: Non- Living Status: Hx Family Cardiac Disorders: No Hx Family Respiratory Disorders: Yes (COPD, Black lung) Mother Adopted: No Family Member Ethnicity: Non- Living Status: Hx Family Cardiac Disorders: Yes Hx Family Endocrine Disorder: Yes (DM 2) Internal Medicine - H&P: Meds RX: Dapagliflozin Propanediol [Farxiga] 5 mg PO DAILY 04/27/17 [History] RX: Duloxetine HCl [Cymbalta] 60 mg PO DAILY 04/27/17 [History] RX: Furosemide [Lasix] 40 mg PO DAILY 04/27/17 [History] RX: Liraglutide [Victoza 3-Polo] 1.2 mg SQ DAILY 04/27/17 [History] RX: Multivitamin [Multi-Day Vitamins] 1 tab PO DAILY 04/27/17 [History] RX: Naproxen [Naprosyn] 500 mg PO BID PRN 04/27/17 [History] RX: Olmesartan/Hydrochlorothiazide [Benicar Hct 20-12.5 mg Tablet] 1 tab PO DAILY 04/27/17 [History] RX: Potassium Chloride [Klor-Con 10] 10 meq PO DAILY 04/27/17 [History] RX: Pregabalin [Lyrica] 150 mg PO HS 04/27/17 [History] RX: Rosuvastatin [Crestor] 20 mg PO HS 04/27/17 [History] Ciprofloxacin [Cipro] 500 mg PO BID #22 tablet 04/29/17 [Rx] RX: Acetaminophen [Tylenol] 650 mg PO Q6HR PRN tab 04/29/17 [Rx] RX: Doxycycline Hyclate 100 mg PO BID #22 capsule 04/29/17 [Rx] RX: Valsartan [Diovan] 160 mg PO DAILY #30 tab 04/29/17 [Rx] Allergies cephalexin [From Keflex] Allergy (Verified 05/04/17 21:37) Rash clopidogrel [From Plavix] Allergy (Verified 05/04/17 21:37) Anaphylaxis Penicillins [PCN] Allergy (Verified 05/04/17 21:37) Rash All Systems PM: A 10-system review of systems was performed and is negative for pertinent findings except as documented above in the HPI. - Constitutional Constitutional: no chills, no fever(s), no night sweats - EENT Eyes: no change in vision, no discharge, no pain, no photophobia Ears: no ear discharge, no ear pain, no tinnitus Nose, mouth and throat: no dysphagia, no nasal discharge, no neck pain, no sore throat - Cardiovascular Cardiovascular ROS IM: no chest pain, no diaphoresis, no dyspnea, no lightheadedness, no palpitations, no syncope - Respiratory Respiratory: no cough, no dyspnea, no wheezing, no excessive phlegm production - Gastrointestinal Gastrointestinal: no abdominal pain, no diarrhea, no hematemesis, no hematochezia, no melena, no nausea, no vomiting - Genitourinary Genitourinary: no change in urinary stream, no dysuria, no flank pain, no hematuria - Musculoskeletal Musculoskeletal ROS IM: arthralgias, myalgias, numbness, tingling - Integumentary Integumentary IM: erythema, rash, no pruritus - Neurological Neurological ROS: numbness, tingling, no confusion, no convulsions, no focal weakness, no tremor(s) - Hematologic/Lymphatic Hematologic/Lymphatic: no easy bruising - Constitutional Vitals: Temp Pulse Resp BP Pulse Ox 97.6 F 86 18 130/77 98 05/04/17 21:33 05/04/17 21:33 05/05/17 00:42 05/05/17 00:42 05/04/17 21:33 General appearance: Present: cooperative, pleasant, no acute distress, answers questions appropriately - Head Head exam: Present: atraumatic, normocephalic - Eye Eye exam: Present: PERRL, conjuntiva pink, sclera anicteric - Neck Neck exam general surgery: Present: supple, trachea midline. Absent: lymphadenopathy - Respiratory Respiratory exam: Present: CTAB. Absent: accessory muscle use, rales, rhonchi, wheezes - Cardiovascular Cardiovascular exam: Present: RRR, +S1, +S2. Absent: diastolic murmur, gallop, rubs, systolic murmur - GI/Abdominal GI/Abdominal exam: Present: normal bowel sounds, soft, no peritoneal signs. Absent: distended, guarding, rigid, tenderness - Extremities Exam Extremities exam: Present: pedal edema (left side, pitting), warm (left leg warm to touch below knee), radial pulses palpable and symetrical. Absent: calf tenderness, cyanotic - Neurological Exam Neurological exam: Present: alert, no focal deficits. Absent: facial droop, speech deficit - Skin Skin exam: Present: erythema, intact, rash. Absent: diaphoretic Internal Med - H&P Results - Labs CBC & Chem 7: 05/04/17 22:02 05/04/17 22:02 <Bridget Weinberg - Last Filed: 05/05/17 02:28> Date of Encounter: 05/05/17 Internal Medicine - H&P: HPI History of present illness: Ms. De Leon is a 61 year old female All Systems PM: A 10-system review of systems was performed and is negative for pertinent findings except as documented above in the HPI. - Constitutional Vitals: Temp Pulse Resp BP Pulse Ox 98.4 F 85 17 169/75 94 05/05/17 02:04 05/05/17 02:04 05/05/17 02:04 05/05/17 02:04 05/05/17 02:04 Internal Med - H&P Results - Labs CBC & Chem 7: 05/04/17 22:02 05/04/17 22:02 - Attending Attestation I examined this patient and my medical decision-making was reviewed with the Resident Physician. I agree with the documented findings, disposition and treatment plan as described except to the extent set forth below. 61 yo female with persistent and worsening LLE swelling and erythema who is admitted for loss of function of LLE and for pain control. She had been admitted prior and was empiric treated with > 20 days of antibiotics. Initially received clinda, later bactrim before admitted for IV vanco with some improvement ? but was discharged on doxy/cipro. Not improved with empiric therapy. Erythema had gotten worse. Pain described as burning, constant, 10/10 with loss of function of LLE. ROS 14 point review of systems reviewed. Pertinent positive or negative as per HPI or otherwise reviewed as negative General - AAO x 3 Psych - Appropriate affect/speech. No agitation Eyes - NARCISO. Eye lids intact. No scleral icterus ENT - Oral mucosa pink, dentition intact. External ear clear/dry/intact. No thyromegaly Lymphatics - No cervical/inguinal lympadenopathy Neuro - No gross peripheral or central neuro deficits with intact CN 2-12 exam Heart - Sinus. RRR. S1 and S2 present. No added HS/murmurs appreciated. No elevated JVD appreciated. No calf swellings/erythema Lung - Adequate air entry b/l, No crackes/wheezes appreciated GI - Soft, non-tender. No hepatosplenomegaly/ascities. BS+ - No CVA/suprapubic tenderness or palpable bladder distension Skin - Warm extremities, +2 edema of the LLE with overlying vascular prominence and erythema A/P Right LLE edema, erythema Failed multiple empiric cellulitis therapy Admit for pain control and loss of function Possible vasculitis - on empiric vanco IV, monitor level - Consult derm. Consider non-infectious, vasculitis work up. Rheum eval outpatient - IV dilaudid, norco for pain - patient reported doing well with these meds HTN - cotinue BP med DMII - continue home agents ERLINDA - CPAP
[2017-05-05] MEDS ORDERED: Dextrose Gel 15 GM PO PRN ×2 (01:22)
[2017-05-05] MEDS ORDERED: Acetaminophen 325 MG TABLET PO PRN (01:22)
[2017-05-05] MEDS ORDERED: *HR* Promethazine 25 MG/ML VIAL IVP PRN (01:22)
[2017-05-05] MEDS ORDERED: *HR* Dextrose 50 % in Water (Syg) 50 ML SYRINGE IVP PRN (01:22)
[2017-05-05] MEDS ORDERED: *HR* HYDROmorphone (PF) 1 MG/ML SYRINGE IVP PRN (01:22)
[2017-05-05] MEDS ORDERED: D5% in Water 1,000 ML IVC PRN (01:22)
[2017-05-05] MEDS ORDERED: Naloxone 0.4 MG/ML INJ IVP PRN (01:22)
[2017-05-05] MEDS ORDERED: Pregabalin 75 MG CAPSULE PO SCH (01:30)
[2017-05-05] MEDS ORDERED: *HR* Heparin 5,000 UNIT/ML VIAL SQ SCH (06:00)
[2017-05-05 06:44] LABS: Basophils % 0.3 %; Eosinophils # 0.2 K/mcL (0.0-0.6); Hematocrit 32.3 % (35.3-44.9); Hemoglobin 10.3 g/dL (11.5-15.4); Immature Granulocytes % 0.8 % (0-4); Lymphocytes # 1.6 K/mcL (0.6-4.6); Mean Corpuscular HGB Conc 31.9 g/dL (31.6-35.5); Mean Corpuscular Hemoglobin 26.8 pg (28.0-33.3); Mean Corpuscular Volume 84.1 fL (83.0-100.0); Mean Platelet Volume 11.6 fL (9.4-12.4); Monocytes # 0.6 K/mcL (0.0-1.3); Monocytes % 5.8 %; Neutrophils # 7.3 K/mcL (1.6-8.9); Platelet Count 337 K/mcL (140-400); Red Blood Count 3.84 M/mcL (3.82-4.97); Red Cell Distribution Width 15.5 % (11.5-14.5); Segmented Neutrophils % 75.1 %
[2017-05-05 06:47] LABS: INR 1.2; Prothrombin Time 13.2 Seconds (9.4-12.1)
[2017-05-05 07:01] LABS: BUN/Creatinine Ratio 27 (6-26); Blood Urea Nitrogen 22 mg/dL (7-20); Calcium 10.3 mg/dL (8.6-10.8); Carbon Dioxide 25 mEq/L (19-29); Chloride 103 mEq/L (98-109); Glucose 158 mg/dL (70-99); Magnesium 1.9 mg/dL (1.6-2.6); Osmolality,Calculated 289 (280-300); Phosphorous 2.7 mg/dL (2.3-4.7); Potassium 3.3 mEq/L (3.5-4.5); Sodium 136 mEq/L (136-145); eGFR For African Americans > 60 (> 60); eGFR For Non-African Americans > 60 (> 60)
[2017-05-05 07:18] LABS: Ionized Calcium 1.28 mmol/L (1.15-1.35)
[2017-05-05] MEDS: *HR* HYDROcodone/Acet 5/325 mg TABLET PO PRN ×2 (08:49→13:56)
[2017-05-05] MEDS: Insulin LISPRO 300 UNITS/3 ML VIAL SQ SCH ×2 (08:50→12:21)
[2017-05-05] MEDS ORDERED: Valsartan 160 MG TABLET PO SCH (09:00)
[2017-05-05 10:37] VITALS: BP 115/71
[2017-05-05 11:26] LABS: Rheumatoid Factor 40 IU/mL (0-29)
[2017-05-05 11:52] LABS: Hepatitis A Antibody IgM Nonreactive (Nonreactive); Hepatitis B Core IgM Nonreactive (Nonreactive); Hepatitis B Surface Antigen Nonreactive (Nonreactive); Hepatitis C Virus Antibody Nonreactive (Nonreactive)
--- NOTE | 2017-05-05 12:16 | Discharge Summary ---
Date of Encounter: 05/05/17 Time of Encounter: 09:15 - Discharge Diagnosis (1) Leg pain Priority: Primary Status: Acute Qualifiers: Laterality: left Qualified Code(s): M79.605 - Pain in left leg (2) Cellulitis Priority: Primary Status: Ruled-out Qualifiers: Site of cellulitis: extremity Site of cellulitis of extremity: lower extremity Laterality: left Qualified Code(s): L03.116 - Cellulitis of left lower limb (3) Hypertension Priority: Secondary Status: Chronic Qualifiers: Hypertension type: essential hypertension Qualified Code(s): I10 - Essential (primary) hypertension (4) Elevated serum creatinine Priority: Primary Status: Resolved (5) Non-insulin dependent type 2 diabetes mellitus Priority: Secondary Status: Chronic - Discharge Medications Prescriptions: HYDROcodone/Acet 5/325 mg [Harbeson 5-325 mg] 1 tab PO Q6H PRN #20 tab PRN Reason: Pain predniSONE [PredniSONE] 60 mg PO DAILY 7 Days Home Medications: Dapagliflozin Propanediol [Farxiga] 5 mg PO DAILY 04/27/17 [History] Duloxetine HCl [Cymbalta] 60 mg PO DAILY 04/27/17 [History] Furosemide [Lasix] 40 mg PO DAILY 04/27/17 [History] Liraglutide [Victoza 3-Polo] 1.2 mg SQ DAILY 04/27/17 [History] Multivitamin [Multi-Day Vitamins] 1 tab PO DAILY 04/27/17 [History] Naproxen [Naprosyn] 500 mg PO BID PRN 04/27/17 [History] Olmesartan/Hydrochlorothiazide [Benicar Hct 20-12.5 mg Tablet] 1 tab PO DAILY [History] Potassium Chloride [Klor-Con 10] 10 meq PO DAILY 04/27/17 [History] Pregabalin [Lyrica] 150 mg PO HS 04/27/17 [History] Rosuvastatin [Crestor] 20 mg PO HS 04/27/17 [History] Acetaminophen [Tylenol] 650 mg PO Q6HR PRN tab 04/29/17 [Rx] HYDROcodone/Acet 5/325 mg [Harbeson 5-325 mg] 1 tab PO Q6H PRN #20 tab 05/05/17 [Rx ] predniSONE [PredniSONE] 60 mg PO DAILY 7 Days 05/05/17 [Rx] Allergies/Adverse Reactions: Allergies cephalexin [From Keflex] Allergy (Verified 05/05/17 08:16) Rash clopidogrel [From Plavix] Allergy (Verified 05/05/17 08:16) Anaphylaxis Penicillins [PCN] Allergy (Verified 05/05/17 08:16) Rash Date of admission: 05/04/17 23:42 Primary care physician: Dayan Castillo Consults: 05/05/17 01:49 Consult to Dermatology [CONS] Routine Consulting Provider: Dermatology Jerica Reason for Consult: LLE cellulitis vs. vasculitis; may need biopsy Call Completed: No Discharging clinician: Char Greco Anticipated date of discharge: 05/05/17 - Patient Status Disposition: Home, Self-Care Condition: Fair Functional capacity at discharge: independent ambulation Overall status at discharge: patient is progressing back to baseline - Discharge Instructions Instructions: Diabetes Mellitus Type 2 in Adults (DC) Follow Up With: Jamey Kelly CNP [Primary Care Provider] - Anai Joy MD [Partnered Physician] - 05/08/17 12:30 pm Rc Olivares DO [Partnered Physician] - 05/18/17 1:00 pm Forms: ED Satisfaction Letter Additional Instructions: F/up with - Dermatology on 05/08/17 at 1230 PM - Diet and Activity Activity: resume usual activities as tolerated Diet: diabetic diet, low fat, low cholesterol, low salt diet Hospital course: 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 Patient has had ongoing issues with left leg swelling and has been treated with multiple courses of IV and oral antibiotics with no significant improvement along with recurrence. At this time, It is thought to be likely due to vasculitis/ inflammatory condition rather than infectious cellulitis. She was given pain control with IV Dilaudid and oral hydrocodone with good relief. Case was discussed with dermatology, who recommended outpatient follow-up for possible skin biopsy. Case was also discussed with rheumatology, who recommended to send autoimmune serologies, hepatitis profile and recommended outpatient follow- up. Patient is currently medically stable for discharge. Both these appointments have been scheduled. She is also being discharged on oral steroids as she needs to go back to work and she has been having this problem for the last 4 weeks, her pain is significant affecting her ability to bear weight and ambulate. Patient was also noted to have slightly elevated creatinine, which quickly responded to IV hydration. - Time Spent with Patient Total time spent providing and/or coordinating discharge services: Greater than 30 minutes (45 min) - Constitutional Vitals: Temp Pulse Resp BP Pulse Ox 98.3 F 60 16 115/71 94 05/05/17 10:33 05/05/17 10:33 05/05/17 10:33 05/05/17 10:33 05/05/17 10:33 General appearance: Present: mild distress, A&O X 3, answers questions appropriately - Extremities Exam Extremities exam: Present: pedal edema, warm, radial pulses palpable and symetrical. Absent: calf tenderness, cyanotic Additional comments: Left leg- diffuse edema, extreme sensitivity to touch, some erythema over anterior leg along with purpura - Neurological Exam Neurological exam: Present: CN II-XII intact, oriented X3, no focal deficits. Absent: pronater drift, facial droop, speech deficit
--- NOTE | 2017-05-05 12:48 | Venous Imaging Report ---
LE Venous Duplex Patient Name:Jenelle De Leon Order Number:[id number] Procedure Date:05/04/2017 Date:7Age:61 yrs Gender:Female Location:[facility] ED Room #: ER28 Sewing Pattern Layout Technician:Kate Stokes RDCS Referring MD:DO Rogelio Sibley MD:Magdiel Lewis MD , FACS Primary Indications:R/O DVT Secondary Indications: Impressions: Left lower extremity: normal superficial and deep exam. Recommendations: Preliminary given to Dr Kimble in ED. Findings Venous Duplex Results: Left: Venous imaging of the lower extremity reveals full patency and normal vessel compressibility of the left distal iliac, left common femoral, left superficial femoral, left popliteal, left posterior tibial, left peroneal, left great saphenous and left lesser saphenous. Doppler signals in the evaluated veins were normal. Prior Study: No change compared to prior study dated: 04/25/2017. Lower Extremity Venous Duplex Side Vein Compress Spontaneous Flow Augment Diameter (cm) Depth (cm) Left Distal Iliac Normal Yes Phasic Yes Left Common Femoral Normal Yes Phasic Yes Left Superficial Femoral Normal Yes Phasic Yes Left Popliteal Normal Yes Phasic Yes Left Posterior Tibial Normal Yes Phasic Yes Left Peroneal Normal Yes Phasic Yes Left Great Saphenous Normal Yes Phasic Yes Left Lesser Saphenous Normal Yes Phasic Yes Updated by Magdiel Lewis MD, FACS on 05/05/2017 12:41:50 PM Magdiel Lewis MD electronically signed on 05/05/2017 12:42:19 PM with status of Final
[2017-05-05] MEDS ORDERED: Insulin LISPRO 300 UNITS/3 ML VIAL SQ SCH (21:00)
[2017-05-08 08:02] LABS: ANA IgG by ELISA NONE DETECTED (None Detected)
[2017-05-09 07:07] LABS: Myeloperoxidase Ab 3 AU/mL (0-19); Serine Protease-3 Antibody 665 AU/mL (0-19)
== END 2017-05-05 14:59 | disposition home or self-care (01) ==
LOC: 3ANU 20:53 → EMEROO 20:53 → 3ANU 05-05 00:58
PROVIDERS: ADMIT Internal Medicine Hematology & Oncology; ATTEND Internal Medicine

== ENCOUNTER 2017-05-25 18:50 | Inpatient (IN) ==
[2017-05-25] MEDS ORDERED: 0.9 % Sodium Chloride 1,000 ML IVC ONE (20:16)
[2017-05-25] MEDS ORDERED: Insulin Regular, Human 100 UNIT/ML SQ ONE (20:19)
--- NOTE | 2017-05-25 20:26 | Emergency Department Note ---
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, Hyperglycemia due to type 2 diabetes mellitus Disposition: Admitted As Inpatient Condition: Fair General Adult HPI - General Chief complaint: ED Recheck/Abnormal Lab/Rx Stated complaint: abnormal labs Time Seen by Provider: 05/25/17 19:46 Source: patient Limitations: no limitations - History of Present Illness Pain Scale: 3 - Related Data Home Medications Medication Instructions Recorded Confirmed Dapagliflozin Propanediol [Farxiga] 5 mg PO DAILY 04/27/17 05/25/17 Duloxetine HCl [Cymbalta] 60 mg PO DAILY 04/27/17 05/25/17 Furosemide [Lasix] 40 mg PO DAILY 04/27/17 05/25/17 Liraglutide [Victoza 3-Polo] 1.2 mg SQ DAILY 04/27/17 05/25/17 Multivitamin [Multi-Day Vitamins] 1 tab PO DAILY 04/27/17 05/25/17 Naproxen [Naprosyn] 500 mg PO BID PRN 04/27/17 05/25/17 Olmesartan/Hydrochlorothiazide 1 tab PO DAILY 04/27/17 05/25/17 [Benicar Hct 20-12.5 mg Tablet] Potassium Chloride [Klor-Con 10] 10 meq PO DAILY 04/27/17 05/25/17 Pregabalin [Lyrica] 150 mg PO BID 04/27/17 05/25/17 Rosuvastatin [Crestor] 20 mg PO HS 04/27/17 05/25/17 Ibuprofen [Motrin] 800 mg PO QID PRN 05/25/17 05/25/17 predniSONE [PredniSONE] 20 mg PO DAILY 05/25/17 05/25/17 Allergies Allergy/AdvReac Type Severity Reaction Status Date / Time cephalexin [From Keflex] Allergy Rash Verified 05/05/17 08:16 clopidogrel [From Plavix] Allergy Anaphylaxis Verified 05/05/17 08:16 Penicillins [PCN] Allergy Rash Verified 05/05/17 08:16 Past Medical History - Past Medical History Medical history: Reports: diabetes, hyperlipidemia, hypertension Surgical history: Reports: hip replacement, hysterectomy Psychiatric history: Reports: no psych history MATERIAL CHASER history: Reports: no MATERIAL CHASER history - Social History Smoking Status: Former smoker Smokeless Tobacco Status: No Alcohol use: Reports: none Drug use: Reports: none Physical Exam - General Limitations: no limitations General appearance: alert, in no apparent distress Course - Reevaluation(s) Reevaluation #1: I saw the patient with the resident, Dr. Chelsea Floyd. Patient presented to the emergency department with a report of high blood sugar. The story is more calm. The neck however. She is actually sent in by rheumatology for admission because she has a vasculitis and he has had her on high-dose steroids for more than a month. It is causing her sugar to go up which is an issue but also he is now concerned that there may be a systemic vasculitis going on and he wants her admitted to the hospital for high-dose steroids and management of the sugar and was concerned that her creatinine is elevating so he think she is a kidney biopsy as well. Physical exam shows evidence of a red rash on the left lower extremity. Otherwise exam is unremarkable. Labs which were done earlier today showed elevated sugar but nothing that would indicate a DKA. CBC was fine. They did not MRI of the leg which was nonspecific inflammatory changes. Bottom line is patient needs to be admitted because of concern for progressive disease and the need for detailed workup and treatment. We will give her some insulin and IV fluids here for the high sugar and contact the hospitalist for admission to the hospital. Time: 20:26 Vital Signs Temperature 98 F 05/25/17 18:51 Pulse Rate 79 05/25/17 18:51 Respiratory Rate 16 05/25/17 18:51 Blood Pressure 155/80 05/25/17 18:51 O2 Sat by Pulse Oximetry 97 05/25/17 18:51 Temperature 98.1 F 05/25/17 23:39 Pulse Rate 64 05/25/17 23:39 Respiratory Rate 15 05/25/17 23:39 Blood Pressure 149/74 05/25/17 23:39 O2 Sat by Pulse Oximetry 96 05/25/17 23:39 Oxygen Delivery Oxygen Delivery Room Air Attestation Statement - Attestation Attestation: I , Dr. Chapin, examined this patient [id number] and my medical decision- making was reviewed with the Resident Physician, Dr. Floyd. I agree with the documented findings, disposition and treatment plan as described except to the extent set forth below. Please see my progress notes for details
--- NOTE | 2017-05-25 20:59 | Emergency Department Note ---
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 Hyperglycemia due to type 2 diabetes mellitus Qualifiers: Diabetes mellitus termite control servicer insulin use: without termite control servicer use Qualified Code(s ): E11.65 - Type 2 diabetes mellitus with hyperglycemia Disposition: Admitted As Inpatient Condition: Fair Referrals: NONE,PCP [Non-Partnered Physician] - Forms: ED Satisfaction Letter Time of Disposition: 21:37 Recheck wound or abnormal lab - General Chief Complaint: ED Recheck/Abnormal Lab/Rx Stated Complaint: abnormal labs Time Seen by Provider: 05/25/17 19:46 Source: patient Mode of arrival: ambulatory Limitations: no limitations Nursing Notes Reviewed: Yes - History of Present Illness HPI Narrative: Patient is a 61-year-old female with past medical history of coronary artery disease, hyperlipidemia, diabetes,and hypertension. She presents to the emergency department after seeing Dr. Vásquez, a leak detector at [facility] this afternoon. He ordered some urgent lab and an MRI of her left lower extremity. While patient was getting her MRI he called back to tell her that there were some abnormalities on her blood work including a blood glucose of 500 and that she needed to report to the emergency department for subsequent admission into the hospital. She said Dr. Vásquez called ahead of time. Patient is resting comfortably. She is in no apparent distress however she is very protective of her left lower extremity. She would not let me come near to it. Patient's denying any nausea, vomiting, dysuria, chest pain , or shortness of breath. 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 He is concerned that it is progressing, and with her blood sugar being so high, he wants her admitted to the hospital as he will likely start steroid bursts to get her vasculitis under control. - Related Data Home Medications Medication Instructions Recorded Confirmed Dapagliflozin Propanediol [Farxiga] 5 mg PO DAILY 04/27/17 05/25/17 Duloxetine HCl [Cymbalta] 60 mg PO DAILY 04/27/17 05/25/17 Furosemide [Lasix] 40 mg PO DAILY 04/27/17 05/25/17 Liraglutide [Victoza 3-Polo] 1.2 mg SQ DAILY 04/27/17 05/25/17 Multivitamin [Multi-Day Vitamins] 1 tab PO DAILY 04/27/17 05/25/17 Naproxen [Naprosyn] 500 mg PO BID PRN 04/27/17 05/25/17 Olmesartan/Hydrochlorothiazide 1 tab PO DAILY 04/27/17 05/25/17 [Benicar Hct 20-12.5 mg Tablet] Potassium Chloride [Klor-Con 10] 10 meq PO DAILY 04/27/17 05/25/17 Pregabalin [Lyrica] 150 mg PO BID 04/27/17 05/25/17 Rosuvastatin [Crestor] 20 mg PO HS 04/27/17 05/25/17 Ibuprofen [Motrin] 800 mg PO QID PRN 05/25/17 05/25/17 predniSONE [PredniSONE] 20 mg PO DAILY 05/25/17 05/25/17 Allergies Allergy/AdvReac Type Severity Reaction Status Date / Time cephalexin [From Keflex] Allergy Rash Verified 05/05/17 08:16 clopidogrel [From Plavix] Allergy Anaphylaxis Verified 05/05/17 08:16 Penicillins [PCN] Allergy Rash Verified 05/05/17 08:16 All systems ED: reviewed and negative except as stated. Review of Systems: As Per HPI Constitutional: Denies: fever, chills Cardiovascular: Denies: chest pain, palpitations, dyspnea on exertion Respiratory: Denies: cough, dyspnea, wheezes Gastrointestinal: Denies: abdominal pain, nausea, vomiting Genitourinary: Denies: urgency, dysuria, frequency Integumentary: Reports: rash (Patient with a punctate erythematous area of rash on her left lower extremity. ) Neurological: Denies: headache, weakness Past Medical History - Past Medical History Attestation: Yes The following information was validated with the patient. Source: patient Medical history: Reports: diabetes, hyperlipidemia, hypertension Surgical history: Reports: hip replacement, hysterectomy Psychiatric history: Reports: no psych history ACTUARIAL CLERK history: Reports: no ACTUARIAL CLERK history - Social History Smoking Status: Former smoker Smokeless Tobacco Status: No Alcohol use: Reports: none Drug use: Reports: none Physical Exam - General Limitations: no limitations General appearance: alert, in no apparent distress - Head Head exam: atraumatic, normocephalic - ENT ENT exam: mucous membranes moist - Respiratory Respiratory exam: Present: normal lung sounds bilaterally. Absent: respiratory distress, wheezes - Cardiovascular Cardiovascular exam: Present: regular rate, normal rhythm. Absent: systolic murmur, diastolic murmur, rubs, gallop - Abdominal Exam Abdominal exam: Present: soft, Non-Tender. Absent: distention, guarding, rebound, rigidity - Extremities Exam Extremities exam: Present: other (Patient with 6cm by 3 cm oval rash on her anterior surface of her lower left extremity. It appears erythematous with spots of punctated redness and excoriation.) Course Course Narrative: Patient requesting to be admitted to the hospital per her leak detector, Dr. Vásquez. She was recently diagnosed with an ANCA vasculitis. Upon lab workup and MRI this morning, patient was found to be hyperglycemic with an additional bump in her creatinine to 1.7. Fahad is going to start systemic bursts of steroids to counteract this new onset of renal involvement with patient's vasculitis. He needs this to be done in-house as patient is already hyperglycemic. She will need her blood sugars monitored while being on high doses of steroids. We will admit her to medicine. - Reevaluation(s) Reevaluation #1: Spoke with Dr. Knight. She will admit the patient. Vital Signs Temperature 98 F 05/25/17 18:51 Pulse Rate 79 05/25/17 18:51 Respiratory Rate 16 05/25/17 18:51 Blood Pressure 155/80 05/25/17 18:51 O2 Sat by Pulse Oximetry 97 05/25/17 18:51 Temperature 98 F 05/25/17 18:51 Pulse Rate 66 05/25/17 20:51 Respiratory Rate 22 05/25/17 20:51 Blood Pressure 163/81 05/25/17 20:51 O2 Sat by Pulse Oximetry 100 05/25/17 20:51 Oxygen Delivery Oxygen Delivery Room Air Recheck wound or abnormal lab - Medical Records Medical records reviewed: Yes I reviewed the patient's medical records. - Lab Data Lab results reviewed: Yes I reviewed the patient's lab results.
[2017-05-25] MEDS ORDERED: *HR* HYDROcodone/Acet 5/325 mg TABLET PO ONE (22:36)
[2017-05-26] MEDS ORDERED: Ondansetron 4 MG/2 ML VIAL IVP PRN (01:56)
[2017-05-26] MEDS ORDERED: Acetaminophen 325 MG TABLET PO PRN (01:56)
[2017-05-26] MEDS ORDERED: Naloxone 0.4 MG/ML INJ IVP PRN (01:56)
[2017-05-26] MEDS ORDERED: D5% in Water 1,000 ML IVC PRN (01:56)
[2017-05-26] MEDS ORDERED: Dextrose Gel 15 GM PO PRN ×2 (01:56)
[2017-05-26] MEDS ORDERED: *HR* Dextrose 50 % in Water (Syg) 50 ML SYRINGE IVP PRN (01:56)
--- NOTE | 2017-05-26 02:19 | Internal Med History&Physical ---
Date of Encounter: 05/26/17 Time of Encounter: 01:20 Assessment and Plan (1) Vasculitis Current visit: Yes Status: Acute 1. Will start on IV Solu-Medrol as requested by Dr. Olivares. 2. Consult Dr. Olivares for guidance and assistance. 3. Consult nephrology for ALTHEA and assistance with further vasculitic work-up. (2) Acute kidney injury Current visit: Yes Status: Acute 1. Stop NSAIDS and diuretics. 2. Consult nephrology. 3. Will obtain renal ultrasound. 4. May need kidney biopsy to help diagnose and determine treatment options. (3) Non-insulin dependent type 2 diabetes mellitus Current visit: No Status: Chronic 1. Will start low dose basal insulin dosing along with SSI. 2. Monitor glucose and adjust dose as necessary. 3. Hold home diabetic meds. (4) DVT prophylaxis Current visit: No Status: Acute 1. Heparin SQ. Internal Medicine - H&P: HPI Chief complaint: abnormal labs; vasculitis Admitted From: Emergency Dept Plans for Post Hospital Care: Home History of present illness: Ms. De Leon is a 61 year old female who was sent to the ER by her fine jewelry sales associate for concerns of abnormal labs, particularly kidney function. She has been following with Dr. Vásquez for treatment of ANCA-positive vasculitis. She had some labs drawn today as well as an MRI of her left lower extremity. Her labs revealed acute kidney injury and significant hyperglycemia. She was therefore referred to the ER. In the ER, she received a dose of insulin and was admitted to the hospitalist service. Upon my assessment of the patient, she is resting in bed comfortably. Other than sharp, shooting pain in her left lower extremity, she has no complaints. She has been treated for presumptive cellulitis twice in last month and a half and was then recently diagnosed with vasculitis. She has been on tapering doses of prednisone and, as prednisone was being tapered, her vasculitis and polyarthralgias have worsened. Additionally, her glucose control has worsened because of steroids. She also has developed acute kidney injury as well. There is concern that she may have vasculitic involvement of her kidneys and Dr. Vásquez, therefore, recommended admission to hospital with nephrology consultation. I reviewed her medications and note that she is on 2 different NSAIDs as well as 2 different diuretics at home. Her kidney injury may be medication related and/or prerenal in etiology as well. Nonetheless, further workup is indicated. According to ER documentation and discussion, Dr. Vásquez requested patient be started on IV steroids. We will also start her on some low -dose basal insulin along with sliding scales on for tighter glucose control. 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 She's had joint aches and swelling with limited range of motion. The symptoms all improved with the addition of steroids. However, as her Prednisone has tapered down slowly, her symptoms have recurred. She denies any hematuria or any other abnormal rashes other than her leg. She has never been diagnosed with rheumatoid arthritis or lupus in the past. Furthermore, there is no family history of collagen vascular disease. I reviewed her labs from earlier today and note trace blood in her urine as well as impaired kidney function. Past Med Surg Social Fam HX - Past Medical History Attestation: Yes The following information was validated with the patient. Source: patient, old records reviewed Medical history: diabetes, hyperlipidemia, hypertension Psychiatric history: no psych history - Past Surgical History Surgical History: hip replacement, hysterectomy - Social History Smoking Status: Former smoker Smokeless Tobacco Status: No Alcohol use: none Drug use: none Current living situation: Home, With Family Activity Level: Independent ambulation - Family History Father Adopted: No Family Member Ethnicity: Non- Living Status: Hx Family Cardiac Disorders: No Hx Family Respiratory Disorders: Yes (COPD, Black lung) Hx Family Cancer: Yes (lung cancer) Mother Adopted: No Family Member Ethnicity: Non- Living Status: Hx Family Cardiac Disorders: Yes Hx Family Cancer: Yes (liver cancer caused ) Hx Family Endocrine Disorder: Yes (DM 2) Internal Medicine - H&P: Meds Dapagliflozin Propanediol [Farxiga] 5 mg PO DAILY 04/27/17 [History] Duloxetine HCl [Cymbalta] 60 mg PO DAILY 04/27/17 [History] Furosemide [Lasix] 40 mg PO DAILY 04/27/17 [History] Liraglutide [Victoza 3-Polo] 1.2 mg SQ DAILY 04/27/17 [History] Multivitamin [Multi-Day Vitamins] 1 tab PO DAILY 04/27/17 [History] Naproxen [Naprosyn] 500 mg PO BID PRN 04/27/17 [History] Olmesartan/Hydrochlorothiazide [Benicar Hct 20-12.5 mg Tablet] 1 tab PO DAILY [History] Potassium Chloride [Klor-Con 10] 10 meq PO DAILY 04/27/17 [History] Pregabalin [Lyrica] 150 mg PO BID 04/27/17 [History] Rosuvastatin [Crestor] 20 mg PO HS 04/27/17 [History] Ibuprofen [Motrin] 800 mg PO QID PRN 05/25/17 [History] predniSONE [PredniSONE] 20 mg PO DAILY 05/25/17 [History] 3 Allergy/AdvReac Type Severity Reaction Status Date / Time cephalexin [From Keflex] Allergy Rash Verified 05/05/17 08:16 clopidogrel [From Plavix] Allergy Anaphylaxis Verified 05/05/17 08:16 Penicillins [PCN] Allergy Rash Verified 05/05/17 08:16 - Constitutional Constitutional: no chills, no fever(s), no night sweats - EENT Eyes: no blurry vision, no change in vision Ears: no ear pain, no tinnitus Nose, mouth and throat: no nasal congestion, no nasal discharge, no sore throat - Cardiovascular Cardiovascular ROS IM: no chest pain, no dyspnea, no dyspnea on exertion, no lightheadedness, no palpitations - Respiratory Respiratory: no cough, no hemoptysis, no dyspnea on exertion, no wheezing - Gastrointestinal Gastrointestinal: no abdominal pain, no diarrhea, no hematemesis, no hematochezia, no melena, no nausea, no vomiting - Genitourinary Genitourinary: no dysuria, no flank pain, no hematuria - Musculoskeletal Musculoskeletal ROS IM: arthralgias, joint swelling, limited range of motion, myalgias - Integumentary Integumentary IM: other (vasculitic rash along LLE) - Neurological Neurological ROS: no focal weakness, no frequent falls, no headache(s) - Psychiatric Psychiatric: no anxiety, no depression - Endocrine Endocrine IM: no cold intolerance, no heat intolerance, no polydipsia, no polyphagia, no polyuria - Hematologic/Lymphatic Hematologic/Lymphatic: no easy bruising, no lymphadenopathy - Allergic/Immunologic Allergic/Immunologic: no wheezing, no GI upset with certain foods - Constitutional Vitals: Temp Pulse Resp BP Pulse Ox 98.1 F 64 15 149/74 96 05/25/17 23:39 05/25/17 23:39 05/25/17 23:39 05/25/17 23:39 05/25/17 23:39 General appearance: Present: cooperative, mild distress, A&O X 3, pleasant, answers questions appropriately - Head Head exam: Present: atraumatic, normal inspection - Eye Eye exam: Present: EOMI, normal appearance, PERRL. Absent: scleral icterus - ENT ENT exam: Present: mucous membranes moist, normal exam - Neck Neck exam general surgery: Present: full ROM, supple. Absent: lymphadenopathy - Expanded Neck Exam Neck exam: Absent: carotid bruit - Respiratory Respiratory exam: Present: CTAB. Absent: chest wall tenderness, rales, respiratory distress, rhonchi, wheezes - Cardiovascular Cardiovascular exam: Present: RRR, +S1, +S2. Absent: diastolic murmur, systolic murmur - GI/Abdominal GI/Abdominal exam: Present: soft. Absent: hepatomegaly, mass, splenomegaly, tenderness - Extremities Exam Extremities exam: Present: tenderness (exquisite along left pretibial area), warm, radial pulses palpable and symmetrical. Absent: calf tenderness - Back Exam Back exam: Present: normal inspection. Absent: CVA tenderness (L), CVA tenderness (R) - Neurological Exam Neurological exam: Present: alert, CN II-XII intact, oriented X3, no focal deficits - Psychiatric Psychiatric exam: Present: normal affect, normal mood - Skin Skin exam: Present: dry, warm Internal Med - H&P Results - Labs Labs: I reviewed her labs, which were drawn earlier today and include the following: WBC 8.2 Hemoglobin 10.5 Hematocrit 33.5 Platelet count 258 Sodium 136 Potassium 3.7 Chloride 98 Carbon dioxide 27 BUN 24 Creatinine 1.70 Glucose 555 Urinalysis suggests some protein and trace red blood cells per high-power field She had 2 recent Doppler studies of her left lower extremity which were negative for DVT
[2017-05-26] MEDS: *HR* HYDROcodone/Acet 5/325 mg TABLET PO PRN (03:55)
[2017-05-26 04:28] LABS: Basophils % 0.4 %; Eosinophils # 0.3 K/mcL (0.0-0.6); Eosinophils % 2.4 %; Hematocrit 33.2 % (35.3-44.9); Hemoglobin 10.2 g/dL (11.5-15.4); Immature Granulocytes % 0.7 % (0-4); Lymphocytes # 3.4 K/mcL (0.6-4.6); Lymphocytes % 31.4 %; Mean Corpuscular HGB Conc 30.7 g/dL (31.6-35.5); Mean Corpuscular Volume 84.7 fL (83.0-100.0); Mean Platelet Volume 11.7 fL (9.4-12.4); Monocytes # 0.6 K/mcL (0.0-1.3); Monocytes % 5.4 %; Neutrophils # 6.5 K/mcL (1.6-8.9); Platelet Count 255 K/mcL (140-400); Red Blood Count 3.92 M/mcL (3.82-4.97); Red Cell Distribution Width 15.7 % (11.5-14.5); Segmented Neutrophils % 59.7 %
[2017-05-26 04:40] LABS: Alanine Aminotransferase 24 Units/L (0-55); Albumin 3.2 g/dL (3.5-5.0); Albumin/Globulin Ratio 0.9 (1.1-2.2); Alkaline Phosphatase 87 Units/L (38-126); Aspartate Amino Transferase 14 Units/L (5-34); BUN/Creatinine Ratio 19 (6-26); Bilirubin,Total 0.3 mg/dL (0.2-1.2); Blood Urea Nitrogen 19 mg/dL (7-20); Calcium 10.4 mg/dL (8.6-10.8); Carbon Dioxide 30 mEq/L (19-29); Chloride 101 mEq/L (98-109); Globulin 3.5 g/dL (2.4-3.5); Glucose 121 mg/dL (70-99); Magnesium 1.9 mg/dL (1.6-2.6); Osmolality,Calculated 294 (280-300); Potassium 2.9 mEq/L (3.5-4.5); Sodium 140 mEq/L (136-145); Total Protein 6.7 g/dL (6.0-8.3); eGFR For African Americans > 60 (> 60); eGFR For Non-African Americans 57 (> 60)
[2017-05-26 04:42] LABS: Prothrombin Time 10.7 Seconds (9.4-12.1)
[2017-05-26 04:45] LABS: Activated Partial Thrombo Time 24.3 Seconds (26.0-36.0)
[2017-05-26 04:54] LABS: Hemoglobin A1C 8.3 %
[2017-05-26] MEDS: *HR* Heparin 5,000 UNIT/ML VIAL SQ SCH ×2 (06:18→17:57)
[2017-05-26] MEDS ORDERED: methylPREDNISolone 125 MG/2 ML VIAL IVP SCH (08:00)
--- NOTE | 2017-05-26 08:20 | Rheumatology Consult Note ---
Date of Encounter: 05/26/17 Time of Encounter: 07:30 Rheumatology Assess and Plan (1) PR3 antineutrophil cytoplasmic antibodies present Current Visit: Yes Status: Acute This patient has had multiple systemic findings of reported arthritis/ arthralgias, purpura/rash, foot drop with worsening paresthesias, microscopic hematuria and nonnephrotic proteinuria. This is all in the presence of of PR3 antibodies. - At this time, I have already spoken to nephrology regarding renal abnormalities and question of renal biopsy; they will evaluate today. - I am requesting neurology evaluate the patient regarding foot drop. 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 - Skin biopsy not diagnostic of vasculitis per derm outpatient workup. - Reassuring today that renal function improved with hydration and NSAID cessation. - For now, lets continue the IV solumedrol that medicine has ordered but I have a low threshold for pulsing solu-medrol. I will await workup from other physicians. - I have spoken to the patient and the primary medicine team along with nephrology. - I also ordered ANCA as an outpatient along with other serologies. 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 However, in the last 2 months she is having severe paresthesias and foot drop. MR of leg shows possible denervation muscle changes;muscle inflammation. An EMG would be helpful though I understand this cannot be done as an inpatient. Will await neurology opinion. Covering with steroids at this time. (3) Rash and nonspecific skin eruption Current Visit: Yes Status: Acute This has been biopsied, improving with steroids. (4) Microscopic hematuria Current Visit: Yes Status: Acute Await nephrology consultation. (5) Non-nephrotic range proteinuria Current Visit: Yes Status: Acute (6) Normocytic anemia Current Visit: Yes Status: Acute Closely monitor while inpatient. (7) Diabetes mellitus without complication Current Visit: Yes Status: Acute Rheumatology HPI Consult date: 05/26/17 Requesting physician: Gino Ortez Consult reason: vasculitis Chief complaint: Foot pain, rash History of present illness: Jenelle De Leon is a 61-year-old female with PMH of DM2, HLD, HTN who presents today for a rash evaluation as referred from the hospital. This patient states that she started having a rash that began ~ 04/08/17. The rash was on her left lower leg. She also had a sudden onset of right shoulder pain. The pain was sharp, severe, worse with movement. She also had pain in her finger, knee and ankle. The pain in the joints was associated with swelling. She has a history of left foot drop and paresthesias in her left foot from back problems. Over time, she had improved weakness with therapy and the tingling was left to her left foot 3rd toe. In the last few months, her left foot has numbness up to her lower foot. She reports that she is having some weakness in her left foot. She is stubbing her toe and having weakness. She was was initially treated with multiple different antibiotics without any resolution. She eventually went to the hospital in the end of April for pain control. She was given vancomycin and no response. She eventually had a biopsy by Dr. Joy that did not show any evidence of vasculitis. Workup at the hospital showed ESR/CRP elevation and PR3. She eventually started prednisone started at 60 mg, 40 and then 20 over a 3 week course. Since being on prednisone, she has had resolution of her joint pain. The rash is starting to resolve. She came to an appt with me on 05/25 with complaints of worsening left foot weakness, burning. Rash resolving. We increased her prednisone to 60 mg and ordered an MR of left lower extremity that showed muscle abnormalities. CXR was normal. She had a rise in Creatinine, glucose and proteinuria with microscopic hematuria. I asked her to go to the hospital for admission. Creatinine has come down with hydration and cessation of NSAIDS. I spoke to nephrology who will come and see her. She reports cough. No hemoptysis. + oral ulceration. She has had erythema in her eyes with no pain with moving around. She has bilateral jaw pain. No blood in her urine. [facility] RF 40 MPO negative, PR3 665 PATRICA negative, CCP negative Infectious Labs 04/24 - Acute hepatitis panel negative Other Labs 05/25 --> 05/26 CBC - Hb 10.2 CMP - Cr 1.7 --> 0.99 overnight UA - 5-15 RBC, Protein:Cr ration 0.88 ESR 117 04/24 CBC - Hb 10.3 CMP - reviewed CRP 60, ESR 63 Radiology 04/24 - Venous duplex full patency and vessel compressibility 04/24 - XR Tib/Fib - no acute abnormality Pathology 05/25 MR left lower extremity - Nonspecific subcutaneous edema in the calf as above. Nonspecific edema within the anterior, lateral, and deep posterior compartment musculature. The differential includes cellulitis/myositis versus lymphedema. Acute muscular denervation is also within the differential. No definite soft tissue abnormality in the visualized portions of the right lower extremity. 04/24 - Right leg - Epidermal necrosis with associated re-epithelialization overlying superficial and deep perivascular and periadnexal dermatitis. Trace IgM, C3, C5b-9 in superficial dermis. Past Med Surg Social Fam HX - Past Medical History Medical history: diabetes, hyperlipidemia, hypertension Psychiatric history: no psych history - Past Surgical History Surgical History: hip replacement, hysterectomy - Social History Smoking Status: Former smoker Smokeless Tobacco Status: No Alcohol use: none Drug use: none - Family History Father Adopted: No Family Member Ethnicity: Non- Living Status: Hx Family Cardiac Disorders: No Hx Family Respiratory Disorders: Yes (COPD, Black lung) Hx Family Cancer: Yes (lung cancer) Mother Adopted: No Family Member Ethnicity: Non- Living Status: Hx Family Cardiac Disorders: Yes Hx Family Cancer: Yes (liver cancer caused ) Hx Family Endocrine Disorder: Yes (DM 2) Medications and Allergies Dapagliflozin Propanediol [Farxiga] 5 mg PO DAILY 04/27/17 [History] Duloxetine HCl [Cymbalta] 60 mg PO DAILY 04/27/17 [History] Furosemide [Lasix] 40 mg PO DAILY 04/27/17 [History] Liraglutide [Victoza 3-Polo] 1.2 mg SQ DAILY 04/27/17 [History] Multivitamin [Multi-Day Vitamins] 1 tab PO DAILY 04/27/17 [History] Naproxen [Naprosyn] 500 mg PO BID PRN 04/27/17 [History] Olmesartan/Hydrochlorothiazide [Benicar Hct 20-12.5 mg Tablet] 1 tab PO DAILY [History] Potassium Chloride [Klor-Con 10] 10 meq PO DAILY 04/27/17 [History] Pregabalin [Lyrica] 150 mg PO BID 04/27/17 [History] Rosuvastatin [Crestor] 20 mg PO HS 04/27/17 [History] Ibuprofen [Motrin] 800 mg PO QID PRN 05/25/17 [History] predniSONE [PredniSONE] 20 mg PO DAILY 05/25/17 [History] 3 Allergy/AdvReac Type Severity Reaction Status Date / Time cephalexin [From Keflex] Allergy Rash Verified 05/05/17 08:16 clopidogrel [From Plavix] Allergy Anaphylaxis Verified 05/05/17 08:16 Penicillins [PCN] Allergy Rash Verified 05/05/17 08:16 All Systems Review: A 10-system review of systems was performed and is negative for pertinent findings except as documented above in the HPI. Review of Systems: General - no recent weight loss, weight gain, fatigue or fevers Eyes - no redness, loss of vision, dryness/itching/foreign body sensation ENT - no dryness of mouth, + oral ulcerations, nasal ulcerations, sore throat Cardiovascular - no chest pain, palpitations, lightheadedness, syncope Respiratory - no shortness of breath, difficulty breathing at night, pleuritic chest pain and no cough Gastrointestinal - no nausea, vomiting, diarrhea, bloating, black/tarry stools, blood in stools or heartburn Genitourinary - no pain on urination, hematuria, frothy urine or ulcerations. Musculoskeletal - + morning stiffness, + joint swelling, muscle aches, tendon/ ligament swelling or tenderness and no inflammatory back pain Integumentary - no easy bruising, + rashes, no hives, photosensitivity, skin thickening, alopecia, color changes of hands. Neurological - + left lower extremity weakness or + paresthesias Hematologic/lymphatic - no tender or swollen glands, history of anemia or blood clots Rheumatology Exam Vital Signs, Last 4 Hours Temp Pulse Resp BP Pulse Ox 05/26/17 07:43 98.0 F 69 17 127/72 95 Exam: General - Alert and oriented x 3, no acute distress and appears comfortable HEENT - Conjunctiva clear, no alopecia or hair thinning, no facial rash, no nasal or oral mucosal lesions/ulcerations Heme/Lymph - No cervical or supraclavicular lymph node enlargement or tenderness. No pallor. Heart - S1S2 regular in rate and rhythm without murmurs, clicks or rubs. Left lower extremity edema. Lungs - Unlabored breathing, clear to auscultation bilaterally without wheezes or crackles; no decrease in chest expansion Abdomen - Soft, nontender, nondistended. Unable to palpate any hepatosplenomegaly Skin - Left lower extremity with nonblanching purpura with scabbing noted. Mild erythema of surrounding tissue. No splinter hemorrhages. Neurological - Gait not assessed as she is in bed, unable to dorsiflex left foot , + hyperalgesia to left lower extremity from mid-rossi downward. Musculoskeletal - Full ROM, no synovitis, no joint tenderness except left ankle out of proportion to exam, no tenderness to palpation of spine Rheumatology Results 05/26/17 03:49 05/26/17 03:49 All other labs normal. Consult Discharge Plan - Plan Referrals: Jamey Kelly CNP [Primary Care Provider] -
[2017-05-26] MEDS: Insulin LISPRO 300 UNITS/3 ML VIAL SQ SCH ×3 (08:53→17:58)
[2017-05-26] MEDS: Multivit/Ca/Min/Fe/FA 1 TAB TABLET PO SCH (08:58)
[2017-05-26] MEDS: Pregabalin 75 MG CAPSULE PO SCH ×2 (08:58→20:15)
[2017-05-26] MEDS: Insulin DETEMIR 100 UNIT/ML X5UNITS SQ SCH ×2 (08:58→22:36)
--- NOTE | 2017-05-26 10:15 | Event Note ---
Date of Encounter: 05/26/17 Time of Encounter: 10:09 Urinary Microscopy by Nephrology I spun a fresh urine specimen for 3 min at 3k RPM, decanted the supernatant and performed light microscopy using both high and low power on the lab-approved [facility] microscopic equipment. She has about 10 RBC/hpf with 0- 1/hpf renal tubular epithelial cells. There were no casts (such as RBC casts) and the RBCs did not appear to have dysmorphic morphology. The RBCs exhibited the classic biconcave appearance.
--- NOTE | 2017-05-26 10:16 | Nephrology Consult Note ---
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 Some labs are still pending, specifically ANCA, but she has indications for a renal biopsy. I reviewed this with her and her in detail including the R/B/I: she voiced consent to proceed. I called and coordinated the renal biopsy with the [place] [facility] and local [place] [facility] de[place] and requested at the biopsy be sent to [facility] Renal [facility]ology; I also requested a vero to help expedite the processing. I agree with provided Methylprednisolone but even upgrading to a pulse dose would be reasonable until the renal biopsy returns. Continue to avoid NSAIDs. And follow a renal protective strategy. Monitor Hgb, which was near 10. Her SCr did improve to near normal today, which is reassuring, so no urgent indications for ALUMINUM CONTAINER TESTER. I discussed her care with Dr. Olivares, the floor nurse and the patient, who is a nurse practitioner in detail. Thank you for consulting the [facility] group. Will follow with you. 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 Will give KCl 40mEq po x1 and check Mag tomorrow in addition to a BMP. 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 About a week ago she started to develop neuropathic-like symptoms with a LE rash. She was treated about "four" rounds of different oral antibiotics. The LE rash was biopsy with only general inflammatory findings. She was seen by [place] [facility] Dr. Olivares who is working her up (please see his notes). She was placed on steroids and became very hyperglycemic with elevated SCr to about 1.7 though with reported previously normal renal function labs. However she was also taking two NSAIDs for her pains. She did not affirm N/V/D, dyspnea, CP. She has not needed to see a legal aid in the past. She did not report any visible hemoptysis. No prior renal stones or flank pains. She did report a new oral ulcer and swelling in her bilateral MCP joints and right shoulder even has limited range of motion acutely -- though these symptoms have improved in the last 24 hours of receiving Methylprednisolone. Family history: no relatives with ESRD. Past Med Surg Social Fam HX - Past Medical History Medical history: diabetes, hyperlipidemia, hypertension Psychiatric history: no psych history - Past Surgical History Surgical History: hip replacement, hysterectomy - Social History Smoking Status: Former smoker Smokeless Tobacco Status: No Alcohol use: none Drug use: none - Family History Father Adopted: No Family Member Ethnicity: Non- Living Status: Hx Family Cardiac Disorders: No Hx Family Respiratory Disorders: Yes (COPD, Black lung) Hx Family Cancer: Yes (lung cancer) Mother Adopted: No Family Member Ethnicity: Non- Living Status: Hx Family Cardiac Disorders: Yes Hx Family Cancer: Yes (liver cancer caused ) Hx Family Endocrine Disorder: Yes (DM 2) Medications and Allergies Dapagliflozin Propanediol [Farxiga] 5 mg PO DAILY 04/27/17 [History] Duloxetine HCl [Cymbalta] 60 mg PO DAILY 04/27/17 [History] Furosemide [Lasix] 40 mg PO DAILY 04/27/17 [History] Liraglutide [Victoza 3-Polo] 1.2 mg SQ DAILY 04/27/17 [History] Multivitamin [Multi-Day Vitamins] 1 tab PO DAILY 04/27/17 [History] Naproxen [Naprosyn] 500 mg PO BID PRN 04/27/17 [History] Olmesartan/Hydrochlorothiazide [Benicar Hct 20-12.5 mg Tablet] 1 tab PO DAILY [History] Potassium Chloride [Klor-Con 10] 10 meq PO DAILY 04/27/17 [History] Pregabalin [Lyrica] 150 mg PO BID 04/27/17 [History] Rosuvastatin [Crestor] 20 mg PO HS 04/27/17 [History] Ibuprofen [Motrin] 800 mg PO QID PRN 05/25/17 [History] predniSONE [PredniSONE] 20 mg PO DAILY 05/25/17 [History] 3 Allergy/AdvReac Type Severity Reaction Status Date / Time cephalexin [From Keflex] Allergy Rash Verified 05/05/17 08:16 clopidogrel [From Plavix] Allergy Anaphylaxis Verified 05/05/17 08:16 Penicillins [PCN] Allergy Rash Verified 05/05/17 08:16 Review of Systems All Systems: reviewed and no additional remarkable complaints except as stated Exam - Vital Signs Vital signs: Initial Vital Signs Temp Pulse Resp BP Pulse Ox 98 F 79 16 155/80 97 05/25/17 18:51 05/25/17 18:51 05/25/17 18:51 05/25/17 18:51 05/25/17 18:51 Vital Signs - Last 8 Hours Temp Pulse Resp BP Pulse Ox 05/26/17 08:50 95 05/26/17 07:43 98.0 F 69 17 127/72 95 05/26/17 03:09 98.2 F 68 15 129/67 94 Intake and Output 05/25/17 05/26/17 05/26/17 23:59 07:59 15:59 Other: Meal NPO Weight 78.471 kg 78.471 kg Blood Glucose* 147 222 Patient Weight 05/26/17 23:59 Weight 78.471 kg - General Appearance General appearance: well-developed, well-nourished, appears started age, obese EENT: ATNC, PERRL, mucous membranes moist, conjunctiva injected Additional Comments: intraoral small non-bleeding ulcer in left buccal mucosa Neck: no JVD, supple Respiratory: clear Cardiology: no murmurs, edema, regular rate, regular rhythm, normal S1, normal S2 Gastrointestinal: normoactive bowel sounds, no tenderness, obese Integumentary: rash, erythema Neurologic: no focal deficit, no asterixis, alert and oriented x3 Musculoskeletal: no deformities, no clubbing Psychiatric: mood/affect appropriate, cooperative Results - Lab Results 05/26/17 03:49 05/26/17 03:49 Most recent lab results Calcium 10.4 mg/dL (8.6-10.8) 05/26/17 03:49 Magnesium 1.9 mg/dL (1.6-2.6) 05/26/17 03:49 I reviewed the above data hallman and progress notes, labs, vitals, imaging and med lists. Consult Discharge Plan - Plan Referrals: Jamey Kelly CNP [Primary Care Provider] -
[2017-05-26] MEDS ORDERED: *HR* OxyCODONE/APAP 5/325 TABLET PO PRN (10:17)
[2017-05-26] MEDS ORDERED: *HR* HYDROmorphone (PF) 1 MG/ML SYRINGE IVP PRN (10:17)
[2017-05-26] MEDS ORDERED: *HR* Midazolam HCl 2 MG/2 ML VIAL IVP PRN (11:29)
[2017-05-26] MEDS ORDERED: *HR* FentaNYL (PF) 100 MCG/2 ML VIAL IVP PRN (11:29)
[2017-05-26] MEDS ORDERED: 0.9 % Sodium Chloride 500 ML ONE (11:43)
--- NOTE | 2017-05-26 12:16 | IR Procedure Note ---
Date of procedure: 05/26/17 Consent Obtained: Written consent Timeout: Correct patient and procedure verified, Correct site verified, Time out performed, Skin prep completed Local anesthetic: Lidocaine 1% Indications: Proteinuria, hematuria, vasculitis Procedure Performed: CT renal bx Site/Technique: Left kidney Results/Findings: 4 cores with 18g needle Estimated blood loss (cc): 4 Complications: None; Tolerated procedure well Post Procedure Treatment Plan: Monitoring in pts room
--- NOTE | 2017-05-26 13:09 | Event Note ---
Date of Encounter: 05/26/17 Time of Encounter: 12:15 Spoke to patient and about my concerns for ANCA vasculitis with possible renal, nerve, cutaneous involvement. I did also discuss concerns with nephrology. After speaking with patient and her they were agreeable to pulsed IV solu-medrol 500mg daily x 3 days. I discussed with Sara Moseley in regards to medicine management and close monitoring of blood glucose. Await renal biopsy, await neurology opinion and await EMG next Monday.
--- NOTE | 2017-05-26 13:28 | Internal Med Progress Note ---
Date of Encounter: 05/26/17 Time of Encounter: 10:40 - Assessment and plan (1) Vasculitis Current Visit: Yes Status: Acute Assessment and plan: Pt is being treated by Dr. Vásquez for vasculitis. She reports constant, intense burning pain to LLE. Pt has been seen by rheumatology and SoluMedrol orders have been changed to 250mg IV bid x 3 days. Nephrology has also been consulted for ALTHEA and further workup. Percocet 5/325mg po q6h prn Dilaudid 1mg IVP every 4 hours prn breakthrough pain. SoluMedrol as above. (2) Non-insulin dependent type 2 diabetes mellitus Current Visit: No Status: Chronic Assessment and plan: Pt has history of DMII with injectible medications prior to admission. Pt is now requiring insulin for glucose control due to high dose steroids. Continue SSI and Levmir, diabetic diet, accuchecks achs Monitor blood glucose closely. (3) Acute kidney injury Current Visit: Yes Status: Acute Assessment and plan: Pt with elevated Sr Cr on arrival, as well as microscopic hematuria, and proteinuria. Nephrology is following. Renal biospy today with specimen to [facility] by unloader for expedited processing. Sr Cr returned to normal today, GFR remains mildly decreased at 57. Avoid nephrotoxins and NSAIDs. Continue to monitor Hgb. Steroids as above. Nephrology following. (4) Left foot drop Current Visit: Yes Status: Acute Assessment and plan: Pt reports L foot weakness and decreased ROM. Pt states that she has "been dragging it around with me" for a couple of weeks. Most likely due to vasculitis. Neurology is consulted and evaluation is pending at this time. (5) Hypokalemia Current Visit: Yes Status: Acute Assessment and plan: K+ 2.9. Treated with KCl 40meq. Will continue to monitor and replace as needed. (6) DVT prophylaxis Current Visit: No Status: Acute Assessment and plan: Heparin SQ - Time Spent With Patient less than 15 minutes - Subjective Interval history: Pt was seen and assessed at 1040 this a.m. She reports intense, constant pain to LLE. Onset of symptoms 6 weeks ago. I have spoken with Dr. Vásquez by phone, Solu Medrol 250mg IV bid x 3 days has been started for vasculitis. - Constitutional Vitals: Temp Pulse Resp BP Pulse Ox 98.3 F 74 18 127/72 94 08/18/17 12:40 05/26/17 12:55 05/26/17 12:55 05/26/17 12:55 05/26/17 12:55 General appearance: Present: cooperative, mild distress, A&O X 3, pleasant, answers questions appropriately - Head Head exam: Present: normal inspection - Eye Eye exam: Present: normal appearance, conjuntiva pink - ENT ENT exam: Present: mucous membranes moist, normal exam, normal external ear exam - Neck Neck exam general surgery: Present: normal inspection. Absent: lymphadenopathy , tenderness - Respiratory Respiratory exam: Present: CTAB. Absent: chest wall tenderness, rales, respiratory distress, rhonchi, stridor, wheezes - Cardiovascular Cardiovascular exam: Present: RRR, +S1, +S2. Absent: clicks, diastolic murmur, gallop, systolic murmur - GI/Abdominal GI/Abdominal exam: Present: normal bowel sounds, soft. Absent: distended, hepatomegaly, tenderness - Extremities Exam Extremities exam: Present: normal capillary refill, tenderness, warm, radial pulses palpable and symmetrical. Absent: joint swelling, normal inspection, mottling, pedal edema - Neurological Exam Neurological exam: Present: alert, oriented X3, no focal deficits. Absent: altered, strengths equal and symetr throughout, facial droop, speech deficit - Skin Skin exam: Present: dry, intact, warm Internal Medicine: Result - Labs CBC & Chem 7: 05/26/17 03:49 05/26/17 03:49 Labs: Short CBC 05/26/17 Range/Units 03:49 WBC 10.9 (4.3-11.1) K/mcL Hgb 10.2 L (11.5-15.4) g/dL Hct 33.2 L (35.3-44.9) % Plt Count 255 (140-400) K/mcL Neutrophils # 6.5 (1.6-8.9) K/mcL BMP 05/26/17 03:49 Sodium 140 Potassium 2.9 L Chloride 101 Carbon Dioxide 30 H BUN 19 Creatinine 0.99 Glucose 121 H Calcium 10.4 Liver Function 05/26/17 Range/Units 03:49 Total Bilirubin 0.3 (0.2-1.2) mg/dL AST 14 (5-34) Units/L ALT 24 (0-55) Units/L Alkaline Phosphatase 87 (38-126) Units/L Albumin 3.2 L (3.5-5.0) g/dL - ABG Interpretation ABG results: PT/INR, D-dimer PT 10.7 Seconds (9.4-12.1) 05/26/17 03:49 - Impressions Impressions Renal Biopsy CT 05/26/17 00:00 IMPRESSION: Successful CT guided core biopsy of the left kidney. D/ / Gregg Randhawa MD / Gregg Randhawa MD Interpreting Provider: Gregg Randhawa MD Consult Discharge Plan - Plan Referrals: Jamey Kelly CNP [Primary Care Provider] -
[2017-05-26] MEDS ORDERED: methylPREDNISolone 250 MG in 0.9 % Sodium Chloride 50 ML IVPB SCH (13:30)
--- NOTE | 2017-05-26 14:27 | Neurology - Consult Note ---
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 However, will obtain MRI of cervical spine while she is in hospital, due to findings of brisk DTRs and positive Goodman sign on both sides. May have cervical myelopathy. Patient is get EMG/NCV at out patient. can benefit from left ankle brace. Please continue medical and supportive care History of Present Illness Chief complaint: foot drop on the left side HPI: Ms. De Leon is a 61 year old female with PMH significant for s/p lumbar fusion surgery history of left foot drop, HTN, diabetes, newly diagnosed ANCA positive vasculitis, who is consulted regarding left foot drop. She was initially admitted to the hospital after found to have elevated creatinine and hyperglycemia. She has developed what appeared to be left foot drop few weeks ago and EMG/NCV study was ordered next Monday. Patient states that she had lumbar fusion surgery 2007 and at that time she had left foot drop. after the lumbar surgery her left foot drop gradually resolved. But over the last few weeks she developed left foot drop and found one day she could move her left foot. She feels that whole left foot is numb. She has trouble dorsiflex her left foot, and both invert and ethan her left foot. no bowel and bladder difficulty. No significant radicular type of pain reported. Per Dr. Nelson patient was found to have ANCA positive vasculitis. She was admitted to hospital for abnormal labs showing hyperglycemia and elevated creatinine, thought to be related to frequent NSAIDs use or pre-renal. Past Med Surg Social Fam HX - Past Medical History Medical history: diabetes, hyperlipidemia, hypertension Psychiatric history: no psych history - Past Surgical History Surgical History: hip replacement, hysterectomy - Social History Smoking Status: Former smoker Smokeless Tobacco Status: No Alcohol use: none Drug use: none - Family History Father Adopted: No Family Member Ethnicity: Non- Living Status: Hx Family Cardiac Disorders: No Hx Family Respiratory Disorders: Yes (COPD, Black lung) Hx Family Cancer: Yes (lung cancer) Mother Adopted: No Family Member Ethnicity: Non- Living Status: Hx Family Cardiac Disorders: Yes Hx Family Cancer: Yes (liver cancer caused ) Hx Family Endocrine Disorder: Yes (DM 2) Medications and Allergies Dapagliflozin Propanediol [Farxiga] 5 mg PO DAILY 04/27/17 [History] Duloxetine HCl [Cymbalta] 60 mg PO DAILY 04/27/17 [History] Furosemide [Lasix] 40 mg PO DAILY 04/27/17 [History] Liraglutide [Victoza 3-Polo] 1.2 mg SQ DAILY 04/27/17 [History] Multivitamin [Multi-Day Vitamins] 1 tab PO DAILY 04/27/17 [History] Naproxen [Naprosyn] 500 mg PO BID PRN 04/27/17 [History] Olmesartan/Hydrochlorothiazide [Benicar Hct 20-12.5 mg Tablet] 1 tab PO DAILY [History] Potassium Chloride [Klor-Con 10] 10 meq PO DAILY 04/27/17 [History] Pregabalin [Lyrica] 150 mg PO BID 04/27/17 [History] Rosuvastatin [Crestor] 20 mg PO HS 04/27/17 [History] Ibuprofen [Motrin] 800 mg PO QID PRN 05/25/17 [History] predniSONE [PredniSONE] 20 mg PO DAILY 05/25/17 [History] 3 Allergy/AdvReac Type Severity Reaction Status Date / Time cephalexin [From Keflex] Allergy Rash Verified 05/05/17 08:16 clopidogrel [From Plavix] Allergy Anaphylaxis Verified 05/05/17 08:16 Penicillins [PCN] Allergy Rash Verified 05/05/17 08:16 All Systems: A 10-system review of systems was performed and is negative for pertinent findings except as documented above in the HPI. Physical Examination - Vital Signs Vital Signs: Initial Vital Signs Temp Pulse Resp BP Pulse Ox 98 F 79 16 155/80 97 05/25/17 18:51 05/25/17 18:51 05/25/17 18:51 05/25/17 18:51 05/25/17 18:51 - Constitutional General appearance: comfortable - Neurologic Sensorimotor examination: other (Reduced pinprick vibration and touch to left foot) Motor examination - right side: 3/5: toe extension (EHL), 5/5: deltoids, biceps , triceps, wrist flexion, wrist extension, tentering machine feeder, hip flexors, tibialis Anterior , quadriceps, plantarflexion Motor examination - left side: 5/5: deltoids, biceps, triceps, wrist flexion, wrist extension, hip flexors, tentering machine feeder, quadriceps, tibialis Anterior, toe extension (EHL), plantarflexion Detailed sensory examination: other (reduce pinprick, touch and vibration senses to the left foot) Posture: other (None) Reflex and gait examination: other (Gait not tested) Reflexes: Biceps: 3+, Triceps: 3+, Brachioradialis: 3+, Patella: 3+, Achilles: 2 + Mental Status Examination: awake, alert, oriented to person, oriented to place, oriented to time, follows commands appropriately, answers questions appropriately, no agnosia, no aphasia, no aproxia Cerebellar examination: no dysmetria, performs finger to nose and heel to rossi symmetrically without ataxia, no gait ataxia, no truncal ataxia, no difficulty with rapid alternating movements Results - Laboratory Findings CBC and BMP: 05/26/17 03:49 05/26/17 03:49 Abnormal lab findings: Abnormal lab results Hgb 10.2 g/dL (11.5-15.4) L 05/26/17 03:49 Hct 33.2 % (35.3-44.9) L 05/26/17 03:49 MCH 26.0 pg (28.0-33.3) L 05/26/17 03:49 MCHC 30.7 g/dL (31.6-35.5) L 05/26/17 03:49 RDW 15.7 % (11.5-14.5) H 05/26/17 03:49 APTT 24.3 Seconds (26.0-36.0) L 05/26/17 03:49 Potassium 2.9 mEq/L (3.5-4.5) L 05/26/17 03:49 Carbon Dioxide 30 mEq/L (19-29) H 05/26/17 03:49 Est GFR (Non-Af Amer) 57 (> 60) L 05/26/17 03:49 Glucose 121 mg/dL (70-99) H 05/26/17 03:49 POC Glucose 222 (58-89) H 05/26/17 07:43 Hemoglobin A1c 8.3 % (-5.6) H 05/26/17 03:49 Albumin 3.2 g/dL (3.5-5.0) L 05/26/17 03:49 Albumin/Globulin Ratio 0.9 (1.1-2.2) L 05/26/17 03:49 Consult Discharge Plan - Plan Referrals: Jamey Kelly CNP [Primary Care Provider] -
--- NOTE | 2017-05-26 18:05 | Event Note ---
Date of Encounter: 05/26/17 Time of Encounter: 18:02 Nephrology Update I checked on the patient this afternoon, after my clinic, and she reported feeling well. Only minimal flank pain. Has an appetite and was eating dinner. She never did have the renal U/S, but this would be helpful information to have to assess for echogenicity. I made several phone calls to [facility] to our local path department to help expedite the renal biopsy and hopefully receive a stat read this weekend. She had no questions or concerns. I also spoke with her floor nurse, who will contact radiology to help complete the renal U/S.
[2017-05-26] MEDS: *HR* OxyCODONE/APAP 5/325 TABLET PO PRN (20:15)
[2017-05-26] MEDS: methylPREDNISolone 250 MG in 0.9 % Sodium Chloride 50 ML IVPB SCH (22:37)
[2017-05-27 05:00] LABS: Eosinophils % 0.2 %; Hematocrit 33.3 % (35.3-44.9); Hemoglobin 10.1 g/dL (11.5-15.4); Immature Granulocytes % 0.8 % (0-4); Lymphocytes % 12.1 %; Mean Corpuscular HGB Conc 30.3 g/dL (31.6-35.5); Mean Corpuscular Hemoglobin 26.2 pg (28.0-33.3); Mean Corpuscular Volume 86.3 fL (83.0-100.0); Mean Platelet Volume 11.8 fL (9.4-12.4); Monocytes # 0.1 K/mcL (0.0-1.3); Monocytes % 1.3 %; Neutrophils # 7.3 K/mcL (1.6-8.9); Platelet Count 228 K/mcL (140-400); Red Blood Count 3.86 M/mcL (3.82-4.97); Red Cell Distribution Width 15.8 % (11.5-14.5); Segmented Neutrophils % 85.6 %
[2017-05-27 05:09] LABS: Potassium 4.1 mEq/L (3.5-4.5)
[2017-05-27] MEDS: *HR* Heparin 5,000 UNIT/ML VIAL SQ SCH ×2 (05:42→17:14)
[2017-05-27] MEDS: *HR* OxyCODONE/APAP 5/325 TABLET PO PRN ×3 (05:42→20:01)
[2017-05-27] MEDS: Insulin LISPRO 300 UNITS/3 ML VIAL SQ SCH ×3 (08:16→17:13)
[2017-05-27] MEDS: Insulin DETEMIR 100 UNIT/ML X5UNITS SQ SCH ×2 (08:16→20:00)
[2017-05-27] MEDS: Multivit/Ca/Min/Fe/FA 1 TAB TABLET PO SCH (08:16)
[2017-05-27] MEDS: Pregabalin 75 MG CAPSULE PO SCH ×2 (08:16→20:01)
[2017-05-27] MEDS: methylPREDNISolone 250 MG in 0.9 % Sodium Chloride 50 ML IVPB SCH ×2 (08:17→20:03)
--- NOTE | 2017-05-27 10:41 | Nephrology Progress Note ---
Date of Encounter: 05/27/17 Time of Encounter: 09:45 - Assessment and Plan (1) Non-nephrotic range proteinuria Current Visit: Yes Status: Acute Pending the renal biopsy SCr fluctuating only slightly from 0.9 to 1.15 Agree with pulse dose steroids. Continue to follow a renal protective / conservative strategy (2) Microscopic hematuria Current Visit: Yes Status: Acute Suspecting glomerular etiology (3) Acute kidney injury Current Visit: Yes Status: Acute Suspecting vasculitis (4) PR3 antineutrophil cytoplasmic antibodies present Current Visit: Yes Status: Acute Pending all serologies but suspecting ANCA vasculitis. (5) Vasculitis determined by biopsy of skin Current Visit: Yes Status: Acute (6) Hypokalemia Current Visit: Yes Status: Resolved s/p 40mEq po x1. Subjective Principal diagnosis: Vasculitis Interval history: Pt was seen/examined. She did not affirm N/V/D or uremic symptoms. She reported only minimal flank pain at the site of her renal biopsy. No visible hematuria, she affirmed. Objective - Vital Signs Vital signs: Vital Signs Temp Pulse Resp BP Pulse Ox 05/27/17 07:18 97.7 F 71 14 146/61 96 05/26/17 18:31 98.1 F 78 17 127/68 95 05/26/17 16:25 98.5 F 77 17 149/85 97 Intake and Output 05/26/17 05/27/17 05/27/17 23:59 07:59 15:59 Intake Total 54 / 54 Balance 54 / 54 Intake: IV Fluids 54 / 54 Solu-MEDROL 250 MG In 0.9 54 / 54 % Sodium Chloride 50 ML @ 108 mls/hr IVPB BID [facility] Rx#:[id number] Other: Blood Glucose* 387 271 - General Appearance Exam: General appearance: well-developed, well-nourished, appears started age, obese EENT: ATNC, PERRL, mucous membranes moist, conjunctiva injected Additional Comments: intraoral small non-bleeding ulcer in left buccal mucosa Neck: no JVD, supple Respiratory: clear Cardiology: no murmurs, edema, regular rate, regular rhythm, normal S1, normal S2 Gastrointestinal: normoactive bowel sounds, no tenderness, obese Integumentary: rash, erythema Neurologic: no focal deficit, no asterixis, alert and oriented x3 Musculoskeletal: no deformities, no clubbing Psychiatric: mood/affect appropriate, cooperative - Lab 05/28/17 03:35 05/28/17 03:35 Most recent lab results Calcium 10.0 mg/dL (8.6-10.8) 05/27/17 04:22 Magnesium 1.9 mg/dL (1.6-2.6) 05/26/17 03:49 Consult Discharge Plan - Plan Referrals: Jamey Kelly CNP [Primary Care Provider] -
--- NOTE | 2017-05-27 17:06 | Internal Med Progress Note ---
Date of Encounter: 05/27/17 Time of Encounter: 15:35 - Assessment and plan (1) Vasculitis Current Visit: Yes Status: Acute Assessment and plan: Pt is being treated by Dr. Vásquez for vasculitis. She reports decrease in pain to LLE. Pt has been seen by rheumatology and SoluMedrol orders have been changed to 250mg IV bid x 3 days. She reports significant improvement in pain and has been up walking in room. Redness and swelling have also decreased. Nephrology has also been consulted for ALTHEA and further workup. Pt had renal bx yesterday, results pending. Percocet 5/325mg po q6h prn Dilaudid 1mg IVP every 4 hours prn breakthrough pain. SoluMedrol as above. (2) Non-insulin dependent type 2 diabetes mellitus Current Visit: No Status: Chronic Assessment and plan: Pt has history of DMII with injectible medications prior to admission. Pt is now requiring insulin for glucose control due to high dose steroids. Continue high dose SSI and Levmir, diabetic diet, accuchecks achs Monitor blood glucose closely. (3) Acute kidney injury Current Visit: Yes Status: Acute Assessment and plan: Pt with elevated Sr Cr on arrival, as well as microscopic hematuria, and proteinuria. Nephrology is following. Renal biospy yesterday, results pending. Sr Cr with mild bump to 1.15 today, GFR remains mildly decreased at 57. Avoid nephrotoxins and NSAIDs. Continue to monitor Hgb. Steroids as above. Nephrology following. (4) Left foot drop Current Visit: Yes Status: Acute Assessment and plan: Pt reports L foot weakness and decreased ROM. Pt states that she has "been dragging it around with me" for a couple of weeks. Most likely due to vasculitis. Neurology has seen pt and recommended a left ankle brace and have ordered a cervial spine MRI, which has not been done yet. (5) Hypokalemia Current Visit: Yes Status: Resolved (6) DVT prophylaxis Current Visit: No Status: Acute Assessment and plan: Heparin SQ - Subjective Interval history: Pt was seen and assessed at 1535 this afternoon. She reports decrease in pain and is able to get up and get a shower and walk in room. Onset of symptoms 6 weeks ago. I have spoken with Dr. Vásquez by phone, Solu Medrol 250mg IV bid x 3 days was started for vasculitis. Pt has improved significantly and states that the pain has improved and the "shocky" pain has almost stopped. - Constitutional Vitals: Temp Pulse Resp BP Pulse Ox 98.0 F 70 17 135/72 94 05/27/17 15:13 05/27/17 15:13 05/27/17 15:13 05/27/17 15:13 05/27/17 15:13 General appearance: Present: cooperative, mild distress, A&O X 3, pleasant, no acute distress, answers questions appropriately - Head Head exam: Present: normal inspection, normocephalic - Eye Eye exam: Present: normal appearance, conjuntiva pink. Absent: nystagmus - ENT ENT exam: Present: mucous membranes moist, normal exam - Neck Neck exam general surgery: Present: normal inspection. Absent: lymphadenopathy , tenderness - Respiratory Respiratory exam: Present: CTAB. Absent: chest wall tenderness, rales, rhonchi , stridor, wheezes - Cardiovascular Cardiovascular exam: Present: RRR, +S1, +S2. Absent: clicks, diastolic murmur, gallop, systolic murmur - GI/Abdominal GI/Abdominal exam: Present: distended, normal bowel sounds, soft. Absent: tenderness - Extremities Exam Extremities exam: Present: warm, radial pulses palpable and symmetrical. Absent : calf tenderness, pedal edema, tenderness - Neurological Exam Neurological exam: Present: alert, normal gait, oriented X3, no focal deficits. Absent: altered, facial droop, speech deficit - Skin Skin exam: Present: dry, intact, normal color, warm. Absent: rash, urticaria Internal Medicine: Result - Labs CBC & Chem 7: 05/27/17 04:22 05/27/17 04:22 Labs: Short CBC 05/27/17 Range/Units 04:22 WBC 8.6 (4.3-11.1) K/mcL Hgb 10.1 L (11.5-15.4) g/dL Hct 33.3 L (35.3-44.9) % Plt Count 228 (140-400) K/mcL Neutrophils # 7.3 (1.6-8.9) K/mcL BMP 05/27/17 04:22 Sodium 139 Potassium 4.1 Chloride 104 Carbon Dioxide 28 BUN 21 H Creatinine 1.15 H Glucose 267 H Calcium 10.0 - ABG Interpretation ABG results: PT/INR, D-dimer PT 10.7 Seconds (9.4-12.1) 05/26/17 03:49 - Impressions Impressions Retroperitoneum Ultrasound 05/26/17 20:30 IMPRESSION: Unremarkable appearance of the kidneys. There is debris in the urinary bladder. D/ / William Vora MD / William Vora MD Interpreting Provider: William Vora MD Consult Discharge Plan - Plan Referrals: Jamey Kelly CNP [Primary Care Provider] -
[2017-05-28] MEDS: Insulin LISPRO 300 UNITS/3 ML VIAL SQ SCH ×4 (00:57→17:03)
[2017-05-28] MEDS: *HR* OxyCODONE/APAP 5/325 TABLET PO PRN ×3 (03:45→21:20)
[2017-05-28 04:00] LABS: Basophils % 0.1 %; Hematocrit 32.5 % (35.3-44.9); Hemoglobin 10.1 g/dL (11.5-15.4); Immature Platelets 9.1 % (1.1-6.1); Lymphocytes # 1.4 K/mcL (0.6-4.6); Lymphocytes % 12.5 %; Mean Corpuscular HGB Conc 31.1 g/dL (31.6-35.5); Mean Corpuscular Hemoglobin 26.4 pg (28.0-33.3); Mean Corpuscular Volume 84.9 fL (83.0-100.0); Mean Platelet Volume 12.3 fL (9.4-12.4); Monocytes # 0.2 K/mcL (0.0-1.3); Monocytes % 1.8 %; Neutrophils # 9.2 K/mcL (1.6-8.9); Platelet Count 247 K/mcL (140-400); Red Blood Count 3.83 M/mcL (3.82-4.97); Red Cell Distribution Width 15.8 % (11.5-14.5); Segmented Neutrophils % 84.6 %
[2017-05-28 04:12] LABS: Calcium 9.6 mg/dL (8.6-10.8)
[2017-05-28 04:14] LABS: Potassium 4.3 mEq/L (3.5-4.5)
[2017-05-28] MEDS: *HR* Heparin 5,000 UNIT/ML VIAL SQ SCH ×2 (05:48→17:03)
[2017-05-28] MEDS: methylPREDNISolone 250 MG in 0.9 % Sodium Chloride 50 ML IVPB SCH ×2 (08:30→21:21)
[2017-05-28] MEDS: Insulin DETEMIR 100 UNIT/ML X5UNITS SQ SCH ×2 (08:30→21:20)
[2017-05-28] MEDS: Pregabalin 75 MG CAPSULE PO SCH ×2 (08:30→21:20)
[2017-05-28] MEDS: Multivit/Ca/Min/Fe/FA 1 TAB TABLET PO SCH (08:31)
--- NOTE | 2017-05-28 10:22 | Nephrology Progress Note ---
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 Continue the day 3 of 3 for the pulse dose steroids. I recommend Cytoxan as either IV or orally. Historically, it is a challenge to prescribe and patients' local pharmacy to fill oral Cytoxan, so giving a dose of IV Cytoxan tomorrow (Monday), may be the most prudent options. SCr rising today is also consistent with the rising hyperglycemia, which is contributing to the ALTHEA, but so too would the Crescentic ANCA-Associated Vasculitis. Meanwhile continue IVF and to follow a renal protective strategy. Continue to follow a renal protective / conservative strategy Discussed with the hospitalist. Will follow with you. Thank you. (2) Microscopic hematuria Current Visit: Yes Status: Acute See above. Secondary to crescentic glomerulonephritis (GN). (3) Acute kidney injury Current Visit: Yes Status: Acute Multifactorial from GN and hyperglycemia. Cont Pulse dose steroids. Avoid any nephrotoxins. (4) PR3 antineutrophil cytoplasmic antibodies present Current Visit: Yes Status: Acute (5) Vasculitis determined by biopsy of skin Current Visit: Yes Status: Acute (6) Acute crescentic glomerulonephritis Current Visit: Yes Status: Acute Preliminary renal biopsy results have revealed an active, crescentic GN. See above. Subjective Principal diagnosis: Vasculitis work up Interval history: The pt was s/e. She reported feeling well though with elevated BG. She did not affirm N/V/D or uremic symptoms. She denied and visible hemoptysis or hematuria. We discussed her renal biopsy results. Objective - Vital Signs Vital signs: Vital Signs Temp Pulse Resp BP Pulse Ox 05/28/17 07:53 98.1 F 52 16 131/79 96 05/28/17 03:39 98.0 F 62 16 155/80 96 05/27/17 23:33 98.6 F 60 16 128/78 94 05/27/17 19:06 98.7 F 74 16 129/73 96 05/27/17 15:13 98.0 F 70 17 135/72 94 05/27/17 12:12 97.8 F 73 18 122/73 94 Intake and Output 08/19/17 08/20/17 08/20/17 23:59 07:59 15:59 Intake Total 228 / 228 Balance 228 / 228 Intake: IV Fluids 108 / 108 Solu-MEDROL 250 MG In 0.9 108 / 108 % Sodium Chloride 50 ML @ 108 mls/hr IVPB BID [facility] Rx#:[id number] Oral 120 / 120 Other: Weight 79.379 kg Blood Glucose* 316 333 Patient Weight 05/28/17 23:59 Weight 79.379 kg - General Appearance Exam: General appearance: well-developed, well-nourished, appears started age, obese EENT: ATNC, PERRL, mucous membranes moist, conjunctiva injected Additional Comments: intraoral small non-bleeding ulcer in left buccal mucosa Neck: no JVD, supple Respiratory: clear Cardiology: no murmurs, edema, regular rate, regular rhythm, normal S1, normal S2 Gastrointestinal: normoactive bowel sounds, no tenderness, obese Integumentary: rash, erythema Neurologic: no focal deficit, no asterixis, alert and oriented x3 Musculoskeletal: no deformities, no clubbing Psychiatric: mood/affect appropriate, cooperative - Lab 05/28/17 03:35 05/28/17 03:35 Most recent lab results Calcium 9.6 mg/dL (8.6-10.8) 05/28/17 03:35 Magnesium 1.9 mg/dL (1.6-2.6) 05/26/17 03:49 Consult Discharge Plan - Plan Referrals: Jamey Kelly CNP [Primary Care Provider] -
[2017-05-28] MEDS: 0.9 % Sodium Chloride 1,000 ML IVC SCH (15:24)
--- NOTE | 2017-05-28 15:57 | Internal Med Progress Note ---
Date of Encounter: 05/28/17 Time of Encounter: 14:50 - Assessment and plan (1) Vasculitis Current Visit: Yes Status: Acute Assessment and plan: Pt is being treated by Dr. Vásquez for vasculitis. She reports decrease in pain to LLE. She reports significant improvement in pain and has been up walking in room. Redness and swelling have also decreased. Nephrology has also been consulted for ALTHEA and further workup. Patient is being treated for ANCA associated vasculitis. Renal biopsy confirmed vasculitis with crescentic features. She will do IV Cytoxan tomorrow, then every week. Continue to pulse dose of Solu-Medrol. Percocet 5/325mg po q6h prn Dilaudid 1mg every 4 hours prn breakthrough pain. Continue IV Solu-Medrol. (2) Non-insulin dependent type 2 diabetes mellitus Current Visit: No Status: Chronic Assessment and plan: Pt has history of DMII with injectible medications prior to admission. Pt is now requiring insulin for glucose control due to high dose steroids. Continue high dose SSI, Levemir has been increased from 5 units twice a day to 10 units twice a day, diabetic diet, accuchecks achs Monitor blood glucose closely. (3) Acute kidney injury Current Visit: Yes Status: Acute Assessment and plan: Pt with elevated Sr Cr on arrival, as well as microscopic hematuria, and proteinuria. Nephrology is following. Patient had renal biopsy that confirmed crescentic ANCA associated vasculitis. IV fluids at 100 mL's per hour. Avoid nephrotoxins and NSAIDs. Continue to monitor Hgb. Steroids as above. Nephrology following. (4) Left foot drop Current Visit: Yes Status: Acute Assessment and plan: Pt reports L foot weakness and decreased ROM. Pt states that she has "been dragging it around with me" for a couple of weeks. Most likely due to vasculitis. Neurology has seen pt and recommended a left ankle brace and have ordered a cervial spine MRI, which has not been done yet. (5) Hypokalemia Current Visit: Yes Status: Resolved (6) DVT prophylaxis Current Visit: No Status: Acute Assessment and plan: Heparin SQ - Subjective Interval history: Patient was seen at 1450 today. She is upbeat, smiling, positive. She states that pain has returned a little bit, however is still better than on admission. She has been ambulating in her room. We discussed her plan for continued IV steroids and Cytoxan tomorrow. She is aware and agreeable. I have printed information and given it to her about the medication. We discussed her hyperglycemia and change in insulin, as well as the addition of IV fluids today. She is being seen by nephrology who agrees with IV fluid, glucose control and following a renal protective strategy. - Constitutional Vitals: Temp Pulse Resp BP Pulse Ox 97.8 F 57 18 136/70 94 05/28/17 15:11 05/28/17 15:11 05/28/17 15:11 05/28/17 15:11 05/28/17 15:11 General appearance: Present: cooperative, mild distress, A&O X 3, pleasant, no acute distress, answers questions appropriately - Head Head exam: Present: normal inspection, normocephalic - Eye Eye exam: Present: EOMI, normal appearance, conjuntiva pink - ENT ENT exam: Present: mucous membranes moist, normal exam - Neck Neck exam general surgery: Present: normal inspection. Absent: lymphadenopathy , tenderness - Respiratory Respiratory exam: Present: CTAB. Absent: chest wall tenderness, rales, respiratory distress, rhonchi, stridor, wheezes - Cardiovascular Cardiovascular exam: Present: RRR, +S1, +S2. Absent: clicks, diastolic murmur, distant heart sounds, gallop, systolic murmur - GI/Abdominal GI/Abdominal exam: Present: distended, firm, hepatomegaly, normal bowel sounds, soft. Absent: tenderness - Extremities Exam Extremities exam: Present: full ROM, normal capillary refill, normal inspection , warm, radial pulses palpable and symmetrical. Absent: pedal edema, tenderness - Neurological Exam Neurological exam: Present: alert, oriented X3, no focal deficits. Absent: facial droop, speech deficit - Skin Skin exam: Present: dry, intact, normal color, warm. Absent: rash, urticaria Internal Medicine: Result - Labs CBC & Chem 7: 05/28/17 03:35 05/28/17 03:35 Labs: Short CBC 05/28/17 Range/Units 03:35 WBC 10.9 (4.3-11.1) K/mcL Hgb 10.1 L (11.5-15.4) g/dL Hct 32.5 L (35.3-44.9) % Plt Count 247 (140-400) K/mcL Neutrophils # 9.2 H (1.6-8.9) K/mcL BMP 05/28/17 03:35 Sodium 136 Potassium 4.3 Chloride 103 Carbon Dioxide 25 BUN 32 H D Creatinine 1.26 H Glucose 388 H Calcium 9.6 - ABG Interpretation ABG results: PT/INR, D-dimer PT 10.7 Seconds (9.4-12.1) 05/26/17 03:49 Consult Discharge Plan - Plan Referrals: Jamey Kelly CNP [Primary Care Provider] -
[2017-05-29] MEDS: 0.9 % Sodium Chloride 1,000 ML IVC SCH ×3 (02:35→13:14)
[2017-05-29] MEDS: *HR* HYDROcodone/Acet 5/325 mg TABLET PO PRN ×2 (03:09→12:08)
[2017-05-29 04:52] LABS: Basophils % 0.1 %; Hematocrit 30.4 % (35.3-44.9); Hemoglobin 9.2 g/dL (11.5-15.4); Lymphocytes # 1.6 K/mcL (0.6-4.6); Lymphocytes % 15.3 %; Mean Corpuscular HGB Conc 30.3 g/dL (31.6-35.5); Mean Corpuscular Hemoglobin 25.8 pg (28.0-33.3); Mean Corpuscular Volume 85.2 fL (83.0-100.0); Mean Platelet Volume 12.5 fL (9.4-12.4); Monocytes # 0.2 K/mcL (0.0-1.3); Monocytes % 2.3 %; Neutrophils # 8.5 K/mcL (1.6-8.9); Platelet Count 218 K/mcL (140-400); Red Blood Count 3.57 M/mcL (3.82-4.97); Red Cell Distribution Width 15.7 % (11.5-14.5); Segmented Neutrophils % 80.3 %
[2017-05-29 04:54] LABS: BUN/Creatinine Ratio 31 (6-26); Blood Urea Nitrogen 34 mg/dL (7-20); Calcium 9.2 mg/dL (8.6-10.8); Carbon Dioxide 23 mEq/L (19-29); Chloride 106 mEq/L (98-109); Glucose 348 mg/dL (70-99); Osmolality,Calculated 303 (280-300); Potassium 4.2 mEq/L (3.5-4.5); Sodium 136 mEq/L (136-145); eGFR For African Americans > 60 (> 60); eGFR For Non-African Americans 51 (> 60)
[2017-05-29] MEDS: *HR* Heparin 5,000 UNIT/ML VIAL SQ SCH (05:09)
[2017-05-29] MEDS: Insulin LISPRO 300 UNITS/3 ML VIAL SQ SCH ×2 (08:26→12:08)
[2017-05-29] MEDS: Insulin DETEMIR 100 UNIT/ML X5UNITS SQ SCH (08:26)
[2017-05-29] MEDS: Multivit/Ca/Min/Fe/FA 1 TAB TABLET PO SCH (08:26)
[2017-05-29] MEDS: Pregabalin 75 MG CAPSULE PO SCH (08:27)
[2017-05-29] MEDS: methylPREDNISolone 250 MG in 0.9 % Sodium Chloride 50 ML IVPB SCH (08:43)
[2017-05-29] MEDS ORDERED: CYCLOPHOSPHAMIDE IV ONE (09:00)
--- NOTE | 2017-05-29 09:22 | Rheumatology Progress Note ---
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 She has had cutaneous manifestations and foot drop with high suspicion for mononeuritis multiplex. 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 - I have discussed the case with renal; we have discussed starting cyclophosphamide infusions. Dr. Mitchell will hopefully be able to start this today and will continue with outpatient management. - Hepatitis testing, Quantiferon gold negative. 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 EMG pending tomorrow. Neurology did evaluate patient. If vasculitic in nature, will hopefully slowly improve. Would recommend she get a boot to help long-term complications from foot drop. (3) Rash and nonspecific skin eruption Current Visit: Yes Status: Acute This has been biopsied, improving with steroids. (4) Non-nephrotic range proteinuria Current Visit: Yes Status: Acute Has underlying diabetes and vasculitis (5) Normocytic anemia Current Visit: Yes Status: Acute Continue to monitor (6) Diabetes mellitus without complication Current Visit: Yes Status: Acute (7) Need for pneumocystis prophylaxis Current Visit: Yes Status: Acute Can discharge on Bactrim DS on Mon, Mon, Monday though I can address at outpatient appt on Monday. (8) On prednisone therapy Current Visit: Yes Status: Acute Would recommend discharged on omeprazole 40 mg while on high dosed steroids to prevent against gastric irritation. Will try to not use this half-way - Subjective Interval history: Over the weekend, this patient was pulsed with solu-medrol. She reports reduced burning in her left foot and reports some improved strength. She denies joint pain. She had a biopsy of her kidney with confirmed vasculitis with crescentic features/arteriolar involvement per nephrology. Renal function has overall stabilized. Blood glucose levels have been elevated. Today, she has no chest pain, no shortness of breath. ROS General - No fevers, no fatigue, feels ok Eyes - No red/painful eye ENT - Reports having otitis media as outpatient, no sinus or ear pressure, no hemoptysis, no nasal crusting Heart - No chest pain, no palpitations Lungs - No shortness of breath, no cough Abd - No abdominal pain, no melena/hematochezia Skin - Improving rash, no new ulcerative lesions Neuro - Burning and weakness in her left foot MSK - No swollen or tender joints Exam Vital Signs, Last 4 Hours Temp Pulse Resp BP Pulse Ox 05/29/17 07:07 97.7 F 50 16 139/77 96 Exam: Constitutional - no acute distress, conversant Eyes - Conjunctiva clear and lids without lesions ENT - Oral mucosa moist, no ulcerations noted Neck - Soft, nontender Respiratory - Unlabored breathing, clear to auscultation bilaterally without wheezes and crackles Chest - S1S2 RRR without murmurs or extra heart sounds; no peripheral edema. Abdomen - Abdomen without tenderness or masses or hepatosplenomegaly Lymph - No cervical, no supraclavicular and no occipital lymphadenopathy MSK - Gait not assessed, No synovitis in the upper extremities, no synovitis of the lower extremities. Neuro - + hyperalgesia to left lower extremity from mid-rossi downward. Skin - left lower extremity with nonblanching purpura and scabbing noted. Erythema absent. Psych - Mood normal, affect full, oriented to person place and time. Objective Data 05/29/17 04:23 05/29/17 04:23 All other labs normal. Consult Discharge Plan - Plan Referrals: Jamey Kelly CNP [Primary Care Provider] -
[2017-05-29] MEDS ORDERED: SODIUM CHLORIDE 0.9% IV SCH (10:15)
[2017-05-29] MEDS ORDERED: CYCLOPHOSPHAMIDE IV SCH (10:15)
[2017-05-29 11:04] VITALS: BP 160/80
--- NOTE | 2017-05-29 11:29 | Nephrology Progress Note ---
Date of Encounter: 05/29/17 Time of Encounter: 10:20 - Assessment and Plan (1) Non-nephrotic range proteinuria Status: Acute We discussed the indication, benefits vs risks of CYC including IV vs PO. We also discussed the importance of Pred and Bactrim M/W/F and a low dose PPI. Her was present, and they voiced understanding and agreed to proceed. I also discussed an outpt plan for her to follow up with me in about 2 weeks (I' ll ask my team to help schedule this appt), and also discussed with Dr. Vásquez that he'd be happy to help with outpt IV CYC. SCr is trending better today so okay to d/c the IVF. She has mild bibasilar crackles. Continue to follow a renal protective / conservative strategy Discussed with the hospitalist. Will follow with you. Thank you. (2) Microscopic hematuria Status: Acute See above. Secondary to crescentic glomerulonephritis (GN). (3) Acute kidney injury Status: Acute Multifactorial from GN and hyperglycemia. Cont Pulse dose steroids. Avoid any nephrotoxins. (4) PR3 antineutrophil cytoplasmic antibodies present Status: Acute ANCA associated vasculitis: see above for plan - steroids and CYC (5) Vasculitis determined by biopsy of skin Status: Acute She has a painful LLE vasculitic rash that is slowly trending better. She requested a pain medication and plans to resume work. She said Percocets have been tolerated well by her. I will check OARRS and provide a short, defined course of Percocet, as specifically requested by the pt. She has strong contraindications for any NSAIDs (due to the ALTHEA and cresencent glomerulonephritis/renal disease). I discussed the R/B/I and SE profile. I also discussed this with the floor nurse as well. I'll use the [facility] EMR system to print out a script. 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 See above. Subjective Principal diagnosis: Vasculitis work up Interval history: LLE leg pains are slowly trending better. She asked me for an outpt pain medication for the vasculitic rash. The pt was s/e. Objective - Vital Signs Vital signs: Vital Signs Temp Pulse Resp BP Pulse Ox 05/29/17 10:57 98.1 F 58 16 160/80 94 05/29/17 08:25 96 05/29/17 07:07 97.7 F 50 16 139/77 96 05/29/17 03:46 98.1 F 51 16 154/78 94 05/28/17 23:03 98.8 F 55 16 139/72 94 05/28/17 19:09 98.6 F 70 16 129/70 95 05/28/17 15:11 97.8 F 57 18 136/70 94 05/28/17 12:08 97.8 F 98 16 147/79 95 Intake and Output 05/28/17 05/29/17 05/29/17 23:59 07:59 15:59 Intake Total 54 / 54 1500 / 1500 Balance 54 / 54 1500 / 1500 Intake: IV Fluids 54 / 54 1000 / 1000 0.9 % Sodium Chloride 1, 1000 / 1000 000 ML @ 100 mls/hr IVC . Q10H NORMA Rx#:[id number] Solu-MEDROL 250 MG In 0.9 54 / 54 % Sodium Chloride 50 ML @ 108 mls/hr IVPB BID NORMA Rx#:[id number] Oral 500 / 500 Other: # Voids 1 Weight 79.379 kg Blood Glucose* [phone] Patient Weight 05/29/17 23:59 Weight 79.379 kg - General Appearance General appearance: Present: well-developed, well-nourished, appears started age EENT: Present: ATNC, PERRL, mucous membranes moist Neck: Present: no carotid bruit, supple Respiratory: Present: clear (except for very mild basilar crackles) Cardiology: Present: no edema (trace pedal b/l), regular rate, normal S1, normal S2 Gastrointestinal: Present: normoactive bowel sounds, no guarding, obese Integumentary: Present: rash (slightly less erythema. Not ozzing: located in the same region of the lateral aspect of the left lower extremity. ) Neurologic: Present: no focal deficit, no asterixis, alert and oriented x3 Musculoskeletal: Present: no deformities, no clubbing Psychiatric: Present: mood/affect appropriate (very friendly and upbeat), cooperative - Lab 05/29/17 04:23 05/29/17 04:23 Most recent lab results Calcium 9.2 mg/dL (8.6-10.8) 05/29/17 04:23 Magnesium 1.9 mg/dL (1.6-2.6) 05/26/17 03:49 Consult Discharge Plan - Plan Additional Instructions: Follow-up with Dr. Vásquez on Monday as scheduled Continue normal home medications Insulin as written Return to the emergency department if you have any further problems or concerns or if her symptoms return or worsen Follow-up with your primary care provider on the as scheduled. Referrals: Jamey Kelly CNP [Primary Care Provider] - (We have requested a follow up appointment with your primary care provider. The office will call you at home with an appointment date and time.) Rc Olivares DO [Partnered Physician] - 05/31/17 11:45 am Liborio Nazario MD [Partnered Physician] - (We have requested a follow up appointment with Dr Nazario. The office will call you at home with an appointment date and time.) Prescriptions: Insulin DETEMIR [Levemir] 10 unit SQ BID #1 vial Insulin LISPRO [Humalog Kwikpen U-100] 100 unit SQ TIDAC PRN #2 mls PRN Reason: hyperglycemia predniSONE [PredniSONE] 40 mg PO DAILY #30
[2017-05-29] MEDS ORDERED: 0.9 % Sodium Chloride 1,000 ML ONE (12:46)
--- NOTE | 2017-05-29 15:20 | Discharge Summary ---
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 She has had cutaneous manifestations and foot drop with high suspicion for mononeuritis multiplex. 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 - I have discussed the case with renal; we have discussed starting cyclophosphamide infusions. Dr. Mitchell will hopefully be able to start this today and will continue with outpatient management. - Hepatitis testing, Quantiferon gold negative. - Decrease oral prednisone to 40 mg on discharge given difficulty with controlling blood glucose levels Pt will follow up with Dr. Vásquez in the office on Monday. Pain control by Dr. Mitchell. Zofran for nausea associated with Cytoxan. (2) Non-insulin dependent type 2 diabetes mellitus Priority: Secondary Status: Chronic Comments: Pt will need tight glycemic control on discharge for pulse dose steroids. Sliding scale regular insulin for discharge. (3) Acute kidney injury Priority: Secondary Status: Acute Comments: Due to glomerulonephritis and hyperglycemia. Sr Cr has returned to normal and GFR has improved, as well. Avoid nephrotoxins. (4) Left foot drop Priority: Secondary Status: Acute Comments: EMG tomorrow. Pt was seen by neurology, recommend boot for walking. (5) Hypokalemia Priority: Secondary Status: Resolved (6) DVT prophylaxis Priority: Secondary Status: Acute Comments: Heparin SQ - Discharge Medications Prescriptions: Insulin DETEMIR [Levemir] 10 unit SQ BID #1 vial Insulin LISPRO [Humalog Kwikpen U-100] 100 unit SQ TIDAC PRN #2 mls PRN Reason: hyperglycemia predniSONE [PredniSONE] 40 mg PO DAILY #30 Home Medications: Dapagliflozin Propanediol [Farxiga] 5 mg PO DAILY 04/27/17 [History] Duloxetine HCl [Cymbalta] 60 mg PO DAILY 04/27/17 [History] Furosemide [Lasix] 40 mg PO DAILY 04/27/17 [History] Liraglutide [Victoza 3-Polo] 1.2 mg SQ DAILY 04/27/17 [History] Multivitamin [Multi-Day Vitamins] 1 tab PO DAILY 04/27/17 [History] Naproxen [Naprosyn] 500 mg PO BID PRN 04/27/17 [History] Olmesartan/Hydrochlorothiazide [Benicar Hct 20-12.5 mg Tablet] 1 tab PO DAILY [History] Potassium Chloride [Klor-Con 10] 10 meq PO DAILY 04/27/17 [History] Pregabalin [Lyrica] 150 mg PO BID 04/27/17 [History] Rosuvastatin [Crestor] 20 mg PO HS 04/27/17 [History] Ibuprofen [Motrin] 800 mg PO QID PRN 05/25/17 [History] Insulin DETEMIR [Levemir] 10 unit SQ BID #1 vial 05/29/17 [Rx] Insulin LISPRO [Humalog Kwikpen U-100] 100 unit SQ TIDAC PRN #2 mls 05/29/17 [Rx ] predniSONE [PredniSONE] 40 mg PO DAILY #30 05/29/17 [Rx] Allergies/Adverse Reactions: 3 Allergy/AdvReac Type Severity Reaction Status Date / Time cephalexin [From Keflex] Allergy Rash Verified 05/05/17 08:16 clopidogrel [From Plavix] Allergy Anaphylaxis Verified 05/05/17 08:16 Penicillins [PCN] Allergy Rash Verified 05/05/17 08:16 Date of admission: 05/26/17 16:16 Primary care physician: Dayan Castillo Consults: 05/29/17 12:33 Consult to [facility] [CONS] Routine Reason for SW Consult: Chemo Discharging clinician: Sara Moseley Anticipated date of discharge: 05/29/17 - Patient Status Disposition: Home, Self-Care Condition: Good Functional capacity at discharge: independent ambulation Overall status at discharge: patient is back to baseline - Discharge Instructions Follow Up With: Jamey Kelly CNP [Primary Care Provider] - Additional Instructions: Follow-up with Dr. Vásquez on Monday as scheduled Continue normal home medications Insulin as written Return to the emergency department if you have any further problems or concerns or if her symptoms return or worsen Follow-up with your primary care provider on the as scheduled. - Diet and Activity Activity: increase activity as tolerated Diet: diabetic diet Hospital course: Ms. De Leon is a 61 year old female with past medical history of diabetes, hypertension. Patient has had left lower extremity swelling and pain for the last 6 weeks. She has been treated for cellulitis when it was discovered that she most likely had vasculitis to left lower extremity. She was seen by Dr. Vásquez and admitted for further treatment. She was followed not only by rheumatology but also by nephrology. She had a renal biopsy that confirmed vasculitis "with crescentic features plus arteriolar involvement. Patient had elevated serum creatinine and decreased GFR consistent with rising hyperglycemia , but was also contributed to by the crescentic ANCA associated vasculitis. Patient was placed on pulse dose steroids 250 mg of Solu-Medrol IV twice a day. She also received 1 dose of Cytoxan IV and will follow-up with Dr. Vásquez for further treatment for the vasculitis. She was also treated for pain with Percocet and [place] that seemed to help with the pain. Patient was very positive , upbeat, and maintained active in the hospital. We were concerned with her blood glucose levels that were already elevated, she has been placed on high- dose insulin scale insulin as well as Levemir 10 units twice a day. Mrs. Evans creatinine has returned to 1.09 today GFR has improved from 43-51. She is receiving IV fluids for hydration and her serum glucose was down to 348 on her chemistry this morning, had been almost 400 the day before on a.m. labs. Patient has no documented POC glucose at this time for today. Her vital signs have remained within normal limits. She states her pain is significantly better and Dr. Harris has graciously written a prescription for the Percocet for her to take home. I did speak with her primary care provider, Jayesh Fu NP at [facility] with the patient's permission. He is aware of situation and will see her on the as scheduled and discuss pain medication at that time. Patient has left foot drop to affected extremity. She was seen by neurology for this and they recommended a splint. She is going to be placed in a walking boot for stability. She and I discussed her glycemic control at home. I provided her with low dose sliding scale insulin, as well as Levemir 10 mg twice a day. She will be sent home with his own 40 mg daily. She will follow up with Dr. Vásquez on Monday in his office for continued evaluation and treatment. Patient is ready and stable for discharge. Appreciate the consultations and recommendations of Dr. Vásquez, Dr. Mitchell, and Dr. Nazario. - Time Spent with Patient Total time spent providing and/or coordinating discharge services: Less than 30 minutes - Constitutional Vitals: Temp Pulse Resp BP Pulse Ox 98.1 F 58 16 160/80 94 05/29/17 10:57 05/29/17 10:57 05/29/17 10:57 05/29/17 10:57 05/29/17 10:57 General appearance: Present: cooperative, mild distress, A&O X 3, pleasant, no acute distress, answers questions appropriately - Head Head exam: Present: normal inspection, normocephalic - Eye Eye exam: Present: normal appearance, conjuntiva pink - ENT ENT exam: Absent: mucous membranes moist, normal exam - Neck Neck exam general surgery: Present: normal inspection. Absent: lymphadenopathy , tenderness - Respiratory Respiratory exam: Present: CTAB. Absent: chest wall tenderness, rales, rhonchi , stridor, wheezes - Cardiovascular Cardiovascular exam: Present: RRR, +S1, +S2. Absent: diastolic murmur, systolic murmur - GI/Abdominal GI/Abdominal exam: Present: distended, soft. Absent: hepatomegaly, tenderness - Extremities Exam Extremities exam: Present: normal inspection, warm, radial pulses palpable and symmetrical - Neurological Exam Neurological exam: Present: alert, oriented X3, no focal deficits. Absent: facial droop, speech deficit - Skin Skin exam: Present: dry, intact, normal color, warm. Absent: rash, urticaria
== END 2017-05-29 17:00 | disposition home or self-care (01) | DRG 546 ==
LOC: 3BNU 18:50 → EMEROO 18:50 → 3BNU 23:13
PROVIDERS: ADMIT Nurse Practitioner Family; ATTEND Nurse Practitioner Family

== ENCOUNTER 2020-10-24 14:35 | Inpatient (IN) ==
[2020-10-24] MEDS ORDERED: Nitroglycerin 0.4 MG TAB.SUBL SL PRN ×2 (14:50→17:23)
[2020-10-24] MEDS ORDERED: Aspirin 81 MG TAB.CHEW PO ONE (14:50)
[2020-10-24 15:26] LABS: Basophils % 0.3 %; Eosinophils # 0.1 K/mcL (0.0-0.6); Eosinophils % 1.7 %; Hematocrit 37.9 % (35.3-44.9); Hemoglobin 11.7 g/dL (11.5-15.4); Immature Granulocytes % 0.3 % (0-4); Lymphocytes # 1.2 K/mcL (0.6-4.6); Lymphocytes % 16.9 %; Mean Corpuscular HGB Conc 30.9 g/dL (31.6-35.5); Mean Corpuscular Hemoglobin 25.7 pg (28.0-33.3); Mean Corpuscular Volume 83.3 fL (83.0-100.0); Mean Platelet Volume 11.8 fL (9.4-12.4); Monocytes # 0.5 K/mcL (0.0-1.3); Monocytes % 6.7 %; Neutrophils # 5.3 K/mcL (1.6-8.9); Platelet Count 225 K/mcL (140-400); Red Blood Count 4.55 M/mcL (3.82-4.97); Red Cell Distribution Width 15.9 % (11.5-14.5); Segmented Neutrophils % 74.1 %; White Blood Count 7.2 K/mcL (4.3-11.1)
[2020-10-24 15:29] LABS: INR 0.9; Prothrombin Time 10.4 Seconds (9.4-12.1)
[2020-10-24 15:31] LABS: Activated Partial Thrombo Time 26.5 Seconds (26.0-36.0)
[2020-10-24 15:50] LABS: BUN/Creatinine Ratio 22 (6-26); Blood Urea Nitrogen 17 mg/dL (8-23); Calcium 10.7 mg/dL (8.6-10.3); Carbon Dioxide 23 mEq/L (23-29); Chloride 108 mEq/L (98-107); Glucose 163 mg/dL (70-105); Osmolality,Calculated 293 (280-300); Potassium 3.6 mEq/L (3.5-5.1); Sodium 139 mEq/L (136-145); Troponin I 0.05 ng/mL (< 0.04); eGFR For African Americans > 60 (> 60); eGFR For Non-African Americans > 60 (> 60)
[2020-10-24] MEDS ORDERED: *HR* Heparin 5,000 UNIT/ML VIAL IVP PRN ×2 (16:20)
[2020-10-24] MEDS ORDERED: *HR* Heparin 5,000 UNIT/ML VIAL IVP ONE (16:20)
[2020-10-24] MEDS ORDERED: Heparin 25,000UNIT/250ML 1/2NS 25,000 UNIT/250 ML IV.SOLN IVC SCH (16:30)
[2020-10-24 16:54] LABS: Hematocrit 37.2 % (35.3-44.9); Hemoglobin 11.6 g/dL (11.5-15.4); Mean Corpuscular HGB Conc 31.2 g/dL (31.6-35.5); Mean Corpuscular Volume 83.4 fL (83.0-100.0); Mean Platelet Volume 11.6 fL (9.4-12.4); Platelet Count 230 K/mcL (140-400); Red Blood Count 4.46 M/mcL (3.82-4.97); Red Cell Distribution Width 15.9 % (11.5-14.5); White Blood Count 7.7 K/mcL (4.3-11.1)
[2020-10-24 17:00] LABS: Heparin anti-factor XA UFH < 0.04 IU/mL (0.30-0.70)
[2020-10-24 17:01] LABS: INR 0.9; Prothrombin Time 10.5 Seconds (9.4-12.1)
[2020-10-24] MEDS ORDERED: Ondansetron 4 MG/2 ML VIAL IVP PRN (17:18)
[2020-10-24] MEDS ORDERED: Naloxone 0.4 MG/ML INJ IVP PRN (17:18)
[2020-10-24] MEDS ORDERED: Perflutren Lipid Microsphere 1.3 ML in 0.9 % Sodium Chloride 8.7 ML IVP PRN (17:23)
[2020-10-24 17:29] LABS: Troponin I 0.17 ng/mL (< 0.04)
[2020-10-24] MEDS ORDERED: Dextrose Gel 15 GM/37.5 ML TUBE PO PRN ×2 (17:38)
[2020-10-24] MEDS ORDERED: *HR* Dextrose 50 % in Water (Vial) 50 ML VIAL IVP PRN (17:38)
[2020-10-24] MEDS ORDERED: D5% in Water 1,000 ML IVC PRN (17:38)
[2020-10-24 17:53] LABS: Magnesium 2.2 mg/dL (1.6-2.6)
[2020-10-24] MEDS: Insulin LISPRO 300 UNITS/3 ML VIAL SUBQ SCH (18:12)
[2020-10-24 18:18] LABS: Estimated Average Glucose 154 mg/dl
[2020-10-25 02:58] LABS: Alanine Aminotransferase 36 Units/L (7-52); Albumin 4.1 g/dL (3.5-5.7); Albumin/Globulin Ratio 1.9 (1.1-2.2); Alkaline Phosphatase 83 Units/L (34-104); Aspartate Amino Transferase 41 Units/L (13-39); BUN/Creatinine Ratio 18 (6-26); Bilirubin,Total 0.2 mg/dL (0.3-1.0); Blood Urea Nitrogen 17 mg/dL (8-23); Calcium 10.7 mg/dL (8.6-10.3); Carbon Dioxide 28 mEq/L (23-29); Chloride 107 mEq/L (98-107); Chol/HDL Ratio 4.3 (0-4.9); Cholesterol 167 mg/dL (< 200); Globulin 2.2 g/dL (2.4-3.5); Glucose 120 mg/dL (70-105); HDL Cholesterol 39 mg/dL (40-59); LDL Cholesterol,Calculated 75 mg/dL (< 100); Osmolality,Calculated 295 (280-300); Potassium 4.2 mEq/L (3.5-5.1); Sodium 141 mEq/L (136-145); Total Protein 6.3 g/dL (6.4-8.9); Triglycerides 265 mg/dL (< 150); Troponin I 6.63 ng/mL (< 0.04); eGFR For African Americans > 60 (> 60); eGFR For Non-African Americans > 60 (> 60)
[2020-10-25] MEDS: Insulin LISPRO 300 UNITS/3 ML VIAL SUBQ SCH ×3 (03:08→17:21)
[2020-10-25] MEDS ORDERED: MethylPREDNISolone 40 MG/ML VIAL IVP ONE (08:51)
[2020-10-25] MEDS ORDERED: ISOVUE-370 200 ML INFUS..BTL ONE ×2 (09:07→10:26)
[2020-10-25] MEDS ORDERED: Heparin 1,000 UNITS/500 mL 500 ML ONE (09:07)
[2020-10-25] MEDS ORDERED: *HR* Heparin 10,000 UNIT/10 ML VIAL ONE (09:07)
[2020-10-25] MEDS: lisinopriL 10 MG TABLET PO SCH (09:07)
[2020-10-25] MEDS ORDERED: 0.9 % Sodium Chloride 2,000 ML ONE (09:07)
[2020-10-25] MEDS: Aspirin 81 MG TAB.CHEW PO SCH (09:07)
[2020-10-25] MEDS ORDERED: Nitroglycerin 1,000 MCG/10 ML VIAL IV ONE (09:07)
[2020-10-25] MEDS ORDERED: *HR* Midazolam HCl 2 MG/2 ML VIAL ONE (09:19)
[2020-10-25] MEDS ORDERED: *HR* FentaNYL (PF) 100 MCG/2 ML VIAL ONE (09:19)
[2020-10-25 09:29] LABS: Magnesium 2.1 mg/dL (1.6-2.6)
[2020-10-25] MEDS ORDERED: Tirofiban 12.5 MG/250ML 12.5 MG/250 ML BAG ONE (10:02)
[2020-10-25] MEDS ORDERED: *HR* Ticagrelor 90 MG TABLET ONE (10:08)
[2020-10-25] MEDS ORDERED: Acetaminophen 325 MG TABLET PO ONE (20:21)
[2020-10-25] MEDS ORDERED: Insulin LISPRO 300 UNITS/3 ML VIAL SUBQ SCH (21:00)
[2020-10-25] MEDS: *HR* Ticagrelor 90 MG TABLET PO SCH (21:08)
[2020-10-26 05:23] LABS: Basophils % 0.3 %; Eosinophils # 0.1 K/mcL (0.0-0.6); Eosinophils % 1.2 %; Hemoglobin 10.6 g/dL (11.5-15.4); Immature Granulocytes % 0.3 % (0-4); Lymphocytes # 2.6 K/mcL (0.6-4.6); Lymphocytes % 29.2 %; Mean Corpuscular HGB Conc 30.3 g/dL (31.6-35.5); Mean Corpuscular Hemoglobin 25.9 pg (28.0-33.3); Mean Corpuscular Volume 85.4 fL (83.0-100.0); Mean Platelet Volume 11.6 fL (9.4-12.4); Monocytes # 0.7 K/mcL (0.0-1.3); Monocytes % 7.7 %; Neutrophils # 5.4 K/mcL (1.6-8.9); Platelet Count 231 K/mcL (140-400); Red Cell Distribution Width 16.1 % (11.5-14.5); Segmented Neutrophils % 61.3 %; White Blood Count 8.8 K/mcL (4.3-11.1)
[2020-10-26 05:42] LABS: Alanine Aminotransferase 28 Units/L (7-52); Albumin/Globulin Ratio 1.8 (1.1-2.2); Alkaline Phosphatase 74 Units/L (34-104); Aspartate Amino Transferase 24 Units/L (13-39); BUN/Creatinine Ratio 20 (6-26); Bilirubin,Total 0.2 mg/dL (0.3-1.0); Blood Urea Nitrogen 19 mg/dL (8-23); Calcium 10.3 mg/dL (8.6-10.3); Carbon Dioxide 23 mEq/L (23-29); Chloride 109 mEq/L (98-107); Globulin 2.2 g/dL (2.4-3.5); Glucose 131 mg/dL (70-105); Osmolality,Calculated 292 (280-300); Potassium 3.7 mEq/L (3.5-5.1); Sodium 139 mEq/L (136-145); Total Protein 6.2 g/dL (6.4-8.9); eGFR For African Americans > 60 (> 60); eGFR For Non-African Americans > 60 (> 60)
[2020-10-26] MEDS: lisinopriL 10 MG TABLET PO SCH (07:22)
[2020-10-26] MEDS: Aspirin 81 MG TAB.CHEW PO SCH (07:22)
[2020-10-26] MEDS: *HR* Ticagrelor 90 MG TABLET PO SCH (07:22)
[2020-10-26 07:46] VITALS: BP 153/85
[2020-10-26] MEDS: Insulin LISPRO 300 UNITS/3 ML VIAL SUBQ SCH (08:03)
== END 2020-10-26 10:51 | disposition home or self-care (01) | DRG 247 ==
LOC: EMEROOARM 14:35 → 3ANU 14:35
PROVIDERS: ADMIT Internal Medicine; ATTEND Internal Medicine